=== PATIENT | male | born 1980 | race Two or more races ===

== ENCOUNTER 2022-02-13 14:50 | Observation (INO) | payer OTHER, SELFPAY ==
[2022-02-13] VITALS (7 sets, daily range): BP systolic 100–138; BP diastolic 53–90; PULSE 74–89; RESP 16–24; TEMP 36.6–36.8; O2SAT 95–100; BMI 67.0
--- NOTE | ~2022-02-13 | CT_ITS ---
EXAMINATION: CT ANGIOGRAM OF THE CHEST WITH AND WITHOUT CONTRAST (CT PULMONARY ANGIOGRAM FOR PE) CLINICAL INFORMATION: Reason for Exam syncopte, hypotension COMPARISON: None TECHNIQUE: Prior to contrast administration, noncontrast localization images were obtained. Subsequently, multidetector volumetric imaging was performed from the thoracic inlet to below the diaphragms following the administration of 65 mL Omnipaque 350 intravenous contrast. No contrast reaction reported Sagittal, coronal, and MIP oblique sagittal reformatted images were obtained on the CT workstation, uploaded to PACS, and reviewed. This CT examination was performed using dose optimization techniques as appropriate, variously including the following: *Automated exposure control *Adjustment of mA and/or kV according to patient size (this includes techniques or standardized protocols for targeted exams where dose is matched to indication/reason for exam; i.e. extremities or head) *Use of iterative reconstruction technique Total exam dose-length product 515 mGy-cm FINDINGS: QUALITY OF STUDY/CONTRAST BOLUS: Satisfactory. PULMONARY ARTERIES: No central or segmental pulmonary emboli. THORACIC AORTA: No aneurysm or dissection. LUNG: No focal consolidation, nodules or masses. PLEURA: No pleural effusion or pneumothorax. MEDIASTINUM: Normal heart size. No pericardial effusion. No hilar or mediastinal lymphadenopathy. No evidence of septal bowing or right heart strain. CHEST WALL/AXILLA: No axillary or internal mammary lymphadenopathy. OSSEOUS STRUCTURES: No acute or suspicious osseous abnormality. UPPER ABDOMEN: Unremarkable. No reflux of contrast into the hepatic veins to suggest elevated right heart pressures. CT/CT angio chest PE protocol IMPRESSION: Unremarkable exam. No pulmonary embolism. VTE: negative
--- NOTE | ~2022-02-13 | CT_ITS ---
EXAMINATION: CT HEAD WITHOUT CONTRAST CLINICAL INFORMATION: Lethargy, syncope. COMPARISON: None TECHNIQUE: Contiguous axial imaging was performed from the skull base to vertex without intravenous administration of contrast. Coronal and sagittal reformatted images were obtained. This CT examination was performed using dose optimization techniques as appropriate, variously including the following: *Automated exposure control *Adjustment of mA and/or kV according to patient size (this includes techniques or standardized protocols for targeted exams where dose is matched to indication/reason for exam; i.e. extremities or head) *Use of iterative reconstruction technique DLP: 886.06 mGy-cm FINDINGS: The cortical sulci are normal. The lateral ventricles are symmetric, but dilated. Callosal angle of the lateral as greater than 60 degrees. ventricles The third and fourth ventricles are in their normal midline position. The basilar and prepontine cisterns are unremarkable. There is no acute intra or extracerebral abnormality. There is no mass effect or midline shift. Sections through the bony calvarium are unremarkable. The paranasal sinuses are clear. The bony orbits and orbital contents are unremarkable. CT/CT head/brain wo IV con IMPRESSION: 1. No acute intracranial pathology. 2. Dilatation of the lateral ventricles is out of proportion to the degree of cortical atrophy. This is nonspecific, but can be seen with normal pressure hydrocephalus. Correlate clinically.
--- NOTE | ~2022-02-13 | CT_ITS ---
EXAMINATION: CT CERVICAL SPINE WITHOUT CONTRAST CLINICAL INFORMATION: Syncope. Lethargy. COMPARISON: None TECHNIQUE: Axial images through the cervical spine without contrast. Sagittal and coronal reconstructions on the technologist workstation were performed. This CT examination was performed using dose optimization techniques as appropriate, variously including the following: *Automated exposure control *Adjustment of mA and/or kV according to patient size (this includes techniques or standardized protocols for targeted exams where dose is matched to indication/reason for exam; i.e. extremities or head) *Use of iterative reconstruction technique DLP: 797 mGy-cm FINDINGS: Bone alignment is normal. No fracture or dislocation is seen. Disc spaces are normal. Prevertebral soft tissues are normal. There are well corticated soft tissue ossifications or calcifications in the tissues posterior to the C4 and C5 spinous processes likely related to old trauma. Visualized lung apices are clear. CT/CT cervical spine wo IV con IMPRESSION: No acute fracture or dislocation. Fleischner guidelines were followed.
--- NOTE | 2022-02-13 15:16 | ECG_ITS ---
Test Reason : chest pain Blood Pressure : / mmHG Vent. Rate : 080 BPM Atrial Rate : 080 BPM P-R Int : 180 ms QRS Dur : 086 ms QT Int : 356 ms P-R-T Axes : 025 040 021 degrees QTc Int : 410 ms Normal sinus rhythm Normal ECG No previous ECGs available Referred By: Eva Shields Electronically Signed By:GARY CRUZ
--- NOTE | 2022-02-13 15:30 | ED_ITS ---
HPI - Syncope General Chief Complaint: Nausea/Vomiting/Diarrhea Stated Complaint: ?syncope-VSS w/ language barrier Time Seen by Provider: 02/13/22 15:15 Source: patient and family Mode of arrival: EMS Limitations: language barrier (Hungarian-speaking medical aides teacher utilized) History of Present Illness HPI narrative: Patient presents emergency department via EMS. When patient asked why he is here he states he was driving to [place] in that last thing he remembers. He is lethargic at the time of exam, but answering questions appropriately Per patient significant other it seems they arrived in the parking lot patient reported feeling ?not well? he opened the door vomited a large amount, attempted to get out of the car but subsequently fell to the ground. Significant other states that she tried to prevent him from striking his head but it is uncertain whether he did. He was not responsive to her at this time, his eyes were open but he was not verbal. He was assisted back into the car and EMS was called. Significant other reports no significant past medical history, she does report that he just drove straight from [place] yesterday, taking short breaks along the way to rest. Patient and family deny any past medical history. Denies drug or alcohol usage. Reports feeling well prior to symptom onset suddenly today. Denies any similar history of this occurring in the past Related Data Allergies Allergy/AdvReac Type Severity Reaction Status Date / Time No Known Allergies Allergy Verified 02/13/22 15:16 Review of Systems Review of Systems: Constitutional: No weight loss. No fever. No chills. No weakness. No fatigue. Eye: No swelling. No redness. ENT: No sore throat. No rhinorrhea. No nasal congestion. No sore throat. No difficulty swallowing. Skin: No rash. No itching. Cardiovascular: No chest pain. No chest pressure. No palpitations. No pedal edema. Respiratory: No shortness of breath. No cough. No sputum production. Gastrointestinal: No anorexia. No nausea. No vomiting. No diarrhea. No abdominal pain. No blood in stool. Genitourinary: No burning micturition. No urinary frequency. No incontinence. Neurologic: No headache. No dizziness. Positive syncope. No unilateral weakness. No ataxia. No numbness. No tingling. No change in bowel or bladder control. Musculoskeletal: No muscle pain. No back pain. No joint pain. No stiffness. Hematologic: No bleeding. No bruising. Lymphatics: No enlarged lymph nodes. Psychiatric:No depression. No anxiety. Endocrine: No reports of sweating. No cold or heat intolerance. No polyuria. No polydipsia. Yes all other systems are reviewed and are negative [facility] Past Medical History Attestation statement: The following information was validated with the patient. Source: old records reviewed Social History Social History Alcohol intake: current Alcohol intake frequency: holidays/special occasions only Patient Tobacco Use Status: Never used Tobacco Use of substances other than those prescribed or required for medical reasons: No Advance Directives: No Advance Directives Information Provided: No Physical Exam Vital Signs: Vital Signs: Last Vital Signs Temp 98.0 F 02/13/22 16:30 Pulse 86 02/13/22 16:30 Resp 24 H 02/13/22 16:30 BP 124/64 02/13/22 16:30 Pulse Ox 100 02/13/22 16:30 O2 Del Method 02/13/22 16:30 BMI result Body Mass Index 67.0 Appearance: Drowsy, but responding to questions appropriately?Oriented to person, place and time. Eyes: Pupils equal, round and reactive to light.? EOMI. No nystagmus. ENT: Pharynx normal.?? Neck: Normal inspection.? Neck supple.?? CVS: Heart sounds normal. Normal heart rate and rhythm.? Pulses normal.? Hypotensive. ? Respiratory: No respiratory distress.? Lung sounds clear to auscultation bilaterally?? Abdomen: Soft and non-tender. Normoactive bowel sounds. No pulsatile mass.?? Skin: Skin warm and dry.? Normal skin color.? Extremities: No lower extremity edema.? No calf ttp? Neuro: Moves all extremities spontaneously. Sensation intact bilaterally. CN II- XII intact. No focal neuro deficits. Course Course Course Narrative: Patient is a 41-year-old male with no significant past medical history who presents to emergency department today for evaluation after a syncopal episode of sudden onset with vomiting. Patient initially responsive answering questions but does appear lethargic. Hypotensive with equal blood pressures in bilateral upper extremities. Patient transition to CT scan for a stat head CT, no obvious intracranial hemorrhage, therefore obtained CT angio of the chest for pulmonary embolism. Will obtain CBC to evaluate for leukocytosis/ anemia, CMP to evaluate for abnormal electrolytes /abnormal renal function/ abnormal hepatic/biliary function, EKG and troponin to evaluate for ischemia/ACS. Patient to receive 1L NS IV fluids, Aspirin 324mg PO. Reevaluation(s) Reevaluation #1: 1515 Initial EKG with upsloping noted in V2 and V3, with no reciprocal changes, T-wave inversions in III. Troponin <3.5. Obtained repeat EKG 1543, without acute changes. Dr. Connelly performed bedside cardiac ultrasound, sent EKG images and history to Cardiology, Dr. Mora, for evaluation with no reports of concerning findings based on EKGs at this time. Obtaining delta troponin, dystonic blood pressure improving to 100. Continues to be awake and responsive. Time: 16:35 Reevaluation #2: CT angio of the chest is unremarkable for pulmonary embolism. CT of the cervical spine with no acute fracture subluxation. CT of the head with no evidence of intracranial hemorrhage, there is however dilation of the lateral v entricles, which may be consistent with normal pressure hydrocephalus. Patient denies any headache, vision changes, dizziness, lightheadedness. Contacted Neurology for consultation, not consistent with subarachnoid hemorrhage, less likely to be consistent with seizure given no history, and the presentation, no suggested neurologic intervention at this time, however recommended outpatient neurology follow-up for further evaluation of head CT findings. Time: 17:28 Reevaluation #3: Patient updated on all findings. Repeat troponin is unremarkable. Spoke with hospitalist Dr. Mejia, accepts patient for admission to medicine service. Patient agreeable with plan of care. Advised that he will require outpatient follow-up with Neurology regarding head CT findings. Time: 17:56 MDM - Syncope Medical Records Attestation: I reviewed the patient's medical records. Lab Data Attestation: I reviewed the patient's lab results. Result diagrams: 02/13/22 15:31 02/13/22 15:31 Labs: Lab Results 02/13/22 02/13/22 02/13/22 Range/Units 15:31 15:31 15:31 WBC 6.4 (4.8-10.8) X10*3/uL RBC 4.67 (4.60-5.80) X10*6/uL Hgb 14.3 (14.0-18.0) g/dl Hct 41.5 L (42.0-52.0) % MCV 88.9 (80.0-98.0) fL MCH 30.6 (27.0-33.0) pg MCHC 34.5 (31.0-36.0) g/dl RDW 13.3 (11.0-16.0) % Plt Count 257 (160-400) X10*3/uL MPV 9.8 (9.4-12.4) fL Immature Gran % (Auto) 0.2 (0.0-0.4) % Neut % (Auto) 53.1 (45-73) % Lymph % (Auto) 35.4 (20-40) % [place] % (Auto) 9.1 (2-11) % Eos % (Auto) 1.6 (0-4) % Baso % (Auto) 0.6 (0-2) % Lymph # (Auto) 2.3 (1.2-4.9) X10*3/uL [place] # (Auto) 0.6 (0.1-1.2) X10*3/uL Eos # (Auto) 0.1 (0.0-0.4) X10*3/uL Baso # (Auto) 0.0 (0.0-0.2) X10*3/uL Abs Immat Gran (auto) 0.01 (0.00-0.03) X10*3/uL Absolute Neuts (auto) 3.4 (2.0-8.3) x10*3/uL Absolute Nucleated RBC 0.000 (0.0-0.012) X10*3/uL Nucleated RBC % (auto) 0.0 (0.0-0.2) /100WBC Sodium 139 (135-145) mmol/L Potassium 4.4 (3.3-5.1) mmol/L Chloride 103 (96-108) mmol/L Carbon Dioxide 23 (22-29) mmol/L Anion Gap 17 (12-20) BUN 16 (9-16) mg/dL Creatinine 1.28 (0.5-1.4) mg/dL Estim Creat Clear Calc 128.7 Estimated GFR > 60 Random Glucose 233 H (60-115) mg/dL Calcium 9.2 (8.4-10.2) mg/dL Magnesium 1.8 (1.6-2.6) mg/dL Total Bilirubin 0.4 (0.0-1.0) mg/dL AST 18 (5-37) U/L ALT 40 (0-40) U/L Alkaline Phosphatase 46 (39-117) U/L Troponin I High Sens < 3.5 (<3.5-35.0) ng/L Total Protein 6.9 (6.5-8.0) g/dL Albumin 4.0 (3.5-5.0) g/dL 02/13/22 Range/Units 17:20 WBC (4.8-10.8) X10*3/uL RBC (4.60-5.80) X10*6/uL Hgb (14.0-18.0) g/dl Hct (42.0-52.0) % MCV (80.0-98.0) fL MCH (27.0-33.0) pg MCHC (31.0-36.0) g/dl RDW (11.0-16.0) % Plt Count (160-400) X10*3/uL MPV (9.4-12.4) fL Immature Gran % (Auto) (0.0-0.4) % Neut % (Auto) (45-73) % Lymph % (Auto) (20-40) % [place] % (Auto) (2-11) % Eos % (Auto) (0-4) % Baso % (Auto) (0-2) % Lymph # (Auto) (1.2-4.9) X10*3/uL [place] # (Auto) (0.1-1.2) X10*3/uL Eos # (Auto) (0.0-0.4) X10*3/uL Baso # (Auto) (0.0-0.2) X10*3/uL Abs Immat Gran (auto) (0.00-0.03) X10*3/uL Absolute Neuts (auto) (2.0-8.3) x10*3/uL Absolute Nucleated RBC (0.0-0.012) X10*3/uL Nucleated RBC % (auto) (0.0-0.2) /100WBC Sodium (135-145) mmol/L Potassium (3.3-5.1) mmol/L Chloride (96-108) mmol/L Carbon Dioxide (22-29) mmol/L Anion Gap (12-20) BUN (9-16) mg/dL Creatinine (0.5-1.4) mg/dL Estim Creat Clear Calc Estimated GFR Random Glucose (60-115) mg/dL Calcium (8.4-10.2) mg/dL Magnesium (1.6-2.6) mg/dL Total Bilirubin (0.0-1.0) mg/dL AST (5-37) U/L ALT (0-40) U/L Alkaline Phosphatase (39-117) U/L Troponin I High Sens < 3.5 (<3.5-35.0) ng/L Total Protein (6.5-8.0) g/dL Albumin (3.5-5.0) g/dL Imaging Data CT scan - head: Radiologist's impression: CT/CT head/brain wo IV con IMPRESSION: ? 1. No acute intracranial pathology. 2. Dilatation of the lateral ventricles is out of proportion to the degree of cortical atrophy. This is nonspecific, but can be seen with normal pressure hydrocephalus. Correlate clinically. CT/CT cervical spine wo IV con IMPRESSION: No acute fracture or dislocation.? CT scan - chest: Radiologist's impression: CT/CT angio chest PE protocol IMPRESSION: Unremarkable exam. No pulmonary embolism. ? VTE: negative Critical Care Time Critical Care Time Critical Care Time: Yes Total Critical Care Time: 40 Attestation: I personally attest to this critical care time spent taking care of the patient exclusive of all other billable procedures was approximately 40 minutes including initial evaluation of patient, ordering tests, x-ray interpretation, EKG interpretation, medical consultation, documentation, re-evaluation. Discharge Plan Discharge Clinical Impression: Syncope, Abnormal CT of the head Patient Disposition: Admitted As Inpatient
[2022-02-13] MEDS: 0.9 % Sodium Chloride 1,000 ML 999 ML IV (15:32)
[2022-02-13 15:37] LABS: MANUAL DIFF FLAG NO
[2022-02-13 15:38] LABS: Basophils Percent Auto 0.6 % (0-2); Eosinophils Absolute Auto 0.1 X10*3/uL (0.0-0.4); Eosinophils Percent Auto 1.6 % (0-4); Hematocrit 41.5 % (42.0-52.0); Hemoglobin 14.3 g/dl (14.0-18.0); Imm Gran Abs Auto 0.01 X10*3/uL (0.00-0.03); Imm Gran Pct Auto 0.2 % (0.0-0.4); Lymphocytes Absolute Auto 2.3 X10*3/uL (1.2-4.9); Lymphocytes Percent Auto 35.4 % (20-40); Mean Corpuscular HGB Conc 34.5 g/dl (31.0-36.0); Mean Corpuscular Hemoglobin 30.6 pg (27.0-33.0); Mean Corpuscular Volume 88.9 fL (80.0-98.0); Mean Platelet Volume 9.8 fL (9.4-12.4); Monocytes Absolute Auto 0.6 X10*3/uL (0.1-1.2); Monocytes Percent Auto 9.1 % (2-11); Neutrophils Absolute Auto 3.4 x10*3/uL (2.0-8.3); Neutrophils Percent Auto 53.1 % (45-73); Platelet Count 257 X10*3/uL (160-400); Red Blood Count 4.67 X10*6/uL (4.60-5.80); Red Cell Distribution Width 13.3 % (11.0-16.0); White Blood Count 6.4 X10*3/uL (4.8-10.8)
[2022-02-13] MEDS: iohexoL 350 MG/ML 100 ML INFUS..BTL IV (15:56)
[2022-02-13 16:05] LABS: Alanine Aminotransferase 40 U/L (0-40); Alkaline Phosphatase 46 U/L (39-117); Anion Gap 17 (12-20); Aspartate Amino Transferase 18 U/L (5-37); Bilirubin Total 0.4 mg/dL (0.0-1.0); Blood Urea Nitrogen 16 mg/dL (9-16); Calcium 9.2 mg/dL (8.4-10.2); Carbon Dioxide 23 mmol/L (22-29); Chloride 103 mmol/L (96-108); Creatinine Clr Calc Pharmacy 128.7; Estimated Glomerular Filt Rate > 60; Glucose Random 233 mg/dL (60-115); Magnesium 1.8 mg/dL (1.6-2.6); Potassium 4.4 mmol/L (3.3-5.1); Sodium 139 mmol/L (135-145); Total Protein 6.9 g/dL (6.5-8.0)
[2022-02-13 16:12] LABS: Troponin-I High Sensitivity < 3.5 ng/L (<3.5-35.0)
--- NOTE | 2022-02-13 16:29 | ECG_ITS ---
Test Reason : stroke Blood Pressure : / mmHG Vent. Rate : 071 BPM Atrial Rate : 071 BPM P-R Int : 186 ms QRS Dur : 104 ms QT Int : 356 ms P-R-T Axes : 058 062 -40 degrees QTc Int : 386 ms Normal sinus rhythm ST & T wave abnormality, consider lateral ischemia Abnormal ECG When compared with ECG of 13-FEB-2022 15:43, T wave inversion now evident in Anterolateral leads QT has shortened Referred By: Eva Shields Electronically Signed By:GARY CRUZ
[2022-02-13 17:47] LABS: Troponin-I High Sensitivity < 3.5 ng/L (<3.5-35.0)
[2022-02-13] MEDS: Aspirin 81 MG TAB.CHEW 324 MG PO (18:11)
[2022-02-13 18:34] LABS: COVID-19 Test Negative (Negative); IDNOW Serial# 16C4AD1C
--- NOTE | 2022-02-13 19:17 | PM.IMHP ---
History of Present Illness Date of Service: 02/13/22 Chief Complaint: Syncope 41-year-old male with no significant past medical history presented to the hospital today with a chief complaint of fall/syncope. Patient reported that he was at the shopping, felt unwell, had an episode of vomiting followed by he fainted and fell onto the ground. Denies any neck pain back pain hip pain. Denies any chest pain or palpitations. Mentioned that he just drove from [place]. Denies any fever chills cough or sputum production. Mentioned that he has been trying to keep up with the fluids and diet. Denies any numbness tingling or focal weakness. Review of all other systems is negative except mentioned above ER course: Per ER team patient at the scene noted to have systolic blood pressure in 70s. Given IV fluids improved blood pressure to 124/64. EKG was nonischemic. Troponins were negative. CT head showed no acute intracranial process but noted to have bilateral lateral ventricle-discussed with Dr. Cortes from Neurology, recommended no further neurological intervention, outpatient neurology follow-up. Admitted to the hospital for further management PMFSH Pertinent family history: Reviewed Social History Alcohol intake: current Alcohol intake frequency: holidays/special occasions only Patient Tobacco Use Status: Never used Tobacco Use of substances other than those prescribed or required for medical reasons: No Advance Directives: No Advance Directives Information Provided: No Meds Allergies Allergy/AdvReac Type Severity Reaction Status Date / Time No Known Allergies Allergy Verified 02/13/22 15:16 Active Medications: Current Medications Acetaminophen (Acetaminophen 325 Mg Tablet) 650 mg PO Q6H PRN PRN Reason: Pain, Mild (Pain Scale 1-3) Heparin Sodium (Porcine) (Heparin Sodium,Porcine 5,000 Unit/Ml Vial) 5,000 unit SUBCUT Q8H [place] Sodium Chloride (Ns) 1,000 mls @ 100 mls/hr IVCONT .Q10H [place] Melatonin (Melatonin 3 Mg Tablet) 6 mg PO BEDTIME PRN PRN Reason: Insomnia Senna (Sennosides 8.6 Mg Tablet) 17.2 mg PO BEDTIME PRN PRN Reason: Constipation Sodium Chloride (0.9 % Sodium Chloride Flush 3 Ml Syringe) 3 ml IVFLUSH QSHIFT [place]ODIA Physical Exam Vital Signs and Narrative: Vital Signs: Last Vital Signs Temp 98.0 F 02/13/22 16:30 Pulse 86 02/13/22 16:30 Resp 24 H 02/13/22 16:30 BP 124/64 02/13/22 16:30 Pulse Ox 100 02/13/22 16:30 O2 Del Method 02/13/22 16:30 BMI result Body Mass Index 67.0 Gen: Appears be in no acute distress HEENT: NCAT, Moist mucosa. Pulmonary: Vesicular breath sounds, fair air entry CVS: Normal S1-S2 Abdomen: BS+, Soft, Nontender Extremities: Warm well perfused Neuro: Alert and awake. Grossly nonfocal Results Labs CBC and Chem 7: 02/13/22 15:31 02/13/22 15:31 Labs: Laboratory Results - last 24 hr 02/13/22 02/13/22 02/13/22 15:31 15:31 18:14 MCV 88.9 MCH 30.6 MCHC 34.5 RDW 13.3 Plt Count 257 MPV 9.8 Immature Gran % (Auto) 0.2 Neut % (Auto) 53.1 Lymph % (Auto) 35.4 [place] % (Auto) 9.1 Eos % (Auto) 1.6 Baso % (Auto) 0.6 Lymph # (Auto) 2.3 [place] # (Auto) 0.6 Eos # (Auto) 0.1 Baso # (Auto) 0.0 Abs Immat Gran (auto) 0.01 Absolute Neuts (auto) 3.4 Absolute Nucleated RBC 0.000 Nucleated RBC % (auto) 0.0 Anion Gap 17 Estim Creat Clear Calc 128.7 Estimated GFR > 60 Random Glucose 233 H Calcium 9.2 Magnesium 1.8 Total Bilirubin 0.4 AST 18 ALT 40 Alkaline Phosphatase 46 Total Protein 6.9 Albumin 4.0 COVID-19 ([facility]) Negative COVID-19 Clin Com See Note Imaging Radiologist's Impressions: Impressions Cervical Spine CT 02/13/22 16:11 IMPRESSION: No acute fracture or dislocation. Fleischner guidelines were followed. Head CT 02/13/22 16:11 IMPRESSION: 1. No acute intracranial pathology. 2. Dilatation of the lateral ventricles is out of proportion to the degree of cortical atrophy. This is nonspecific, but can be seen with normal pressure hydrocephalus. Correlate clinically. Chest CTA 02/13/22 16:13 IMPRESSION: Unremarkable exam. No pulmonary embolism. VTE: negative Assessment and Plan (1) Syncope: Status: Acute Plan 41-year-old male with no significant past medical history presented to the hospital with a chief complaint of vomiting/syncope/fall. Syncope: Likely in setting of volume depletion. Patient was initially hypertensive. Blood pressure improved on IV fluids. Currently 124/64. EKG nonischemic/no evidence of bradycardia blocks. Telemetry Troponins x2 negative CT angio chest showed no evidence of pulmonary embolism Echocardiogram CT head showed-dilated ventricles; neurology Dr. Cortes recommended no further neurological intervention, outpatient follow-up Cardiology consult Orthostatic vitals Continue maintenance IV fluids DVT prophylaxis: Subcu heparin Code status: Full code Quality Stroke Does the patient have a stroke diagnosis?: No VTE Prior VTE?: No VTE Risk Level:: Medical - moderate - high VTE Device Contraindication: Treatment Not Indicated VTE Drug Contraindication: N/A - Med Ordered
[2022-02-13] MEDS: 0.9 % Sodium Chloride Flush 3 ML SYRINGE IVFLUSH (20:55)
[2022-02-13] MEDS: 0.9 % Sodium Chloride 1,000 ML 100 ML IVCONT (20:56)
[2022-02-14] VITALS: BP 106/64; PULSE 75; RESP 18; TEMP 37; O2SAT 94
[2022-02-14 04:00] VITALS: BP 125/79; PULSE 79; RESP 16; TEMP 36.7; O2SAT 96
[2022-02-14 05:59] LABS: Amphetamine Screen Urine Not Detected (Not Detect); Barbiturates, Urine Not Detected (Not Detect); Benzodiazepines Screen Urine Not Detected (Not Detect); Cannabinoid Screen Urine POSITIVE (Not Detect); Cocaine Screen Urine Not Detected (Not Detect); Fentanyl, urine Not Detected (Not Detect); Opiate Screen Urine Not Detected (Not Detect); Phencyclidine Screen Urine Not Detected (Not Detect)
[2022-02-14] MEDS: 0.9 % Sodium Chloride 1,000 ML 100 ML IVCONT (06:35)
[2022-02-14 06:47] LABS: MANUAL DIFF FLAG NO
[2022-02-14 07:02] LABS: Basophils Percent Auto 0.6 % (0-2); Eosinophils Absolute Auto 0.1 X10*3/uL (0.0-0.4); Eosinophils Percent Auto 1.4 % (0-4); Hematocrit 41.2 % (42.0-52.0); Hemoglobin 13.8 g/dl (14.0-18.0); Imm Gran Abs Auto 0.01 X10*3/uL (0.00-0.03); Imm Gran Pct Auto 0.2 % (0.0-0.4); Lymphocytes Absolute Auto 2.2 X10*3/uL (1.2-4.9); Lymphocytes Percent Auto 35.4 % (20-40); Mean Corpuscular HGB Conc 33.5 g/dl (31.0-36.0); Mean Corpuscular Hemoglobin 30.4 pg (27.0-33.0); Mean Corpuscular Volume 90.7 fL (80.0-98.0); Monocytes Absolute Auto 0.6 X10*3/uL (0.1-1.2); Monocytes Percent Auto 9.2 % (2-11); Neutrophils Absolute Auto 3.3 x10*3/uL (2.0-8.3); Neutrophils Percent Auto 53.2 % (45-73); Platelet Count 228 X10*3/uL (160-400); Red Blood Count 4.54 X10*6/uL (4.60-5.80); Red Cell Distribution Width 13.7 % (11.0-16.0); White Blood Count 6.2 X10*3/uL (4.8-10.8)
[2022-02-14 07:44] LABS: Anion Gap 15 (12-20); Blood Urea Nitrogen 12 mg/dL (9-16); Carbon Dioxide 24 mmol/L (22-29); Chloride 107 mmol/L (96-108); Creatinine Clr Calc Pharmacy 169.8; Estimated Glomerular Filt Rate > 60; Glucose Random 193 mg/dL (60-115); Potassium 4.5 mmol/L (3.3-5.1); Sodium 141 mmol/L (135-145)
[2022-02-14 07:53] LABS: Calcium 8.7 mg/dL (8.4-10.2)
[2022-02-14 08:00] VITALS: BP 137/74; PULSE 70; RESP 20; TEMP 36.4; O2SAT 97
--- NOTE | 2022-02-14 08:52 | PHA.MEDREC ---
Pharmacy Consult ? Medication Reconciliation Pharmacy has completed the medication reconciliation. Patient attests to taking no medications due to not being on insurance. Working to get insurance.
[2022-02-14] MEDS: 0.9 % Sodium Chloride Flush 3 ML SYRINGE IVFLUSH (10:03)
[2022-02-14 10:44] VITALS: BP 141/91; PULSE 76; RESP 16; TEMP 36.4; O2SAT 98
[2022-02-14] MEDS: Heparin Sodium,Porcine 5,000 UNIT/ML VIAL 5000 UNIT SUBCUT (12:27)
--- NOTE | 2022-02-14 12:32 | P.CONCA_ITS ---
History of Present Illness History of Present Illness Date of Service: 02/14/22 Requesting physician: Andrew Beltran Consult reason: other (Syncope) Chief complaint: Syncope Narrative: I was consulted to see Sweetien in cardiology consultation today for syncope. She was obtained with help of apparatus repair mechanic. Patient's was at bedside. Patient works in not current drives from not car and came back driving from not call on Tuesday. His usual state of health. Yesterday went to [id number] with his and was driving that. He then said to his that he was not feeling well. He got the car and said he was weak in his knees, his thought he had low sugar and therefore was given his sugar advised him to sit down but then he started is throwing up and then he passed out. noted him to be extremely pale and diaphoretic. Patient was then brought to the emergency room. Initially was hypotensive. His troponins are negative EKG did not show any significant ischemic changes. He was given rapid fluid infusion and since then his blood pressures improved. Currently feels well. He says similar event happened not can about a year ago. He currently has no other major heart issues. Denies any family history of premature sudden cardiac that. He said he is prediabetic. Has not had any hypertension. He said he drinks a lot of fluid. No recent illnesses or viral syndrome or nausea vomiting diarrhea or bleeding issues. Review of Systems Constitutional: Constitutional: Reports no additional constitutional complain ts Eyes: Eyes: Reports no additional eye complaints Cardiovascular: Cardiovascular: Denies chest pain, Denies rapid heart rate, Denies leg edema, Reports Loss of Consciousness, Denies palpitations and Denies dyspnea on exertion Respiratory: Respiratory: Reports no additional respiratory complaints and Denies dyspnea on exertion Gastrointestinal: Gastrointestinal: Reports vomiting Musculoskeletal: Musculoskeletal: Reports no additional musculoskeletal complaints Integumentary/Breasts: Skin/Breast: Reports system reviewed and no additional complaints, except as docu Neurologic: Reports system reviewed and no additional complaints, except as documented Psychiatric: Psychiatric: Reports no additional psychiatric complaints Endocrine: Endocrine: Denies palpitations [facility] Social History Social History Household Members: Spouse Housing: Apartment Do you presently have visiting nurse or other home services: No Alcohol intake: current Alcohol intake frequency: holidays/special occasions only Patient Tobacco Use Status: Never used Tobacco Use of substances other than those prescribed or required for medical reasons: No Currently Displaying Signs/Symptoms of Drug Intoxication Withdrawal: No Have you been hit, kicked, punched, or otherwise hurt by someone within the past year? If so, by whom?: No Do you feel safe in your current relationship?: Yes Is there a partner from a previous relationship who is making you feel unsafe now?: No Are you made to feel afraid or neglected: No Advance Directives: No Advance Directives Information Provided: No Do you have thoughts of harming others: None Do you have a plan to hurt others: No Plan Recently lost weight without trying: No Eating poorly because of decreased appetite: No Nutrition Risks: No Nutritional Risk Poor oral hygiene: No Meds Allergies Allergy/AdvReac Type Severity Reaction Status Date / Time No Known Allergies Allergy Verified 02/13/22 15:16 Active Medications: Current Medications Acetaminophen (Acetaminophen 325 Mg Tablet) 650 mg PO Q6H PRN PRN Reason: Pain, Mild (Pain Scale 1-3) Heparin Sodium (Porcine) (Heparin Sodium,Porcine 5,000 Unit/Ml Vial) 5,000 unit SUBCUT Q8H [facility] Last Admin: 02/14/22 12:27 Dose: 5,000 unit Sodium Chloride (Ns) 1,000 mls @ 100 mls/hr IVCONT .Q10H [facility] Last Admin: 02/14/22 06:35 Dose: 100 mls/hr Melatonin (Melatonin 3 Mg Tablet) 6 mg PO BEDTIME PRN PRN Reason: Insomnia Senna (Sennosides 8.6 Mg Tablet) 17.2 mg PO BEDTIME PRN PRN Reason: Constipation Sodium Chloride (0.9 % Sodium Chloride Flush 3 Ml Syringe) 3 ml IVFLUSH QSHIFT [facility] Last Admin: 02/14/22 10:03 Dose: 3 ml Home Medications Medication Instructions Recorded Confirmed Last Taken Type No Known Home Meds 02/14/22 02/14/22 Unknown History Physical Exam Vital Signs: Vital Signs: Last Vital Signs Temp 97.5 F 02/14/22 10:44 Pulse 76 02/14/22 10:44 Resp 16 02/14/22 10:44 BP 141/91 H 02/14/22 10:44 Pulse Ox 98 02/14/22 10:44 O2 Del Method 02/14/22 10:44 BMI result Body Mass Index 67.0 Const: General: cooperative, comfortable, no acute distress, alert and awake Nutritional Appearance: obese Orientation/consciousness: patient oriented x3 Limitations: no limitations HEENT: Head: Yes normocephalic and Yes atraumatic Neck: Neck: Yes trachea midline, Yes supple and Yes no JVD Resp: Effort & Inspection: normal respiratory effort Auscultation: clear to auscultation bilaterally Cardio: Jugular venous distension: no JVD Palpation: normal PMI Rate: regular rate Rhythm: regular rhythm Heart sounds: S1 normal heart sound present, S2 normal heart sound present, no click, no gallops and no murmurs GI: Auscultation: normal bowel sounds Skin: General skin exam: no rashes or lesions noted Neuro: General: patient oriented x3 and no focal motor deficits Extrem: General: Yes no clubbing, cyanosis or edema Objective Labs and Meds Result diagrams: 02/14/22 06:39 02/14/22 06:39 Lab results: Laboratory Results - last 24 hr 02/13/22 02/13/22 02/13/22 15:31 15:31 15:31 WBC 6.4 RBC 4.67 Hgb 14.3 Hct 41.5 L MCV 88.9 MCH 30.6 MCHC 34.5 RDW 13.3 Plt Count 257 MPV 9.8 Immature Gran % (Auto) 0.2 Neut % (Auto) 53.1 Lymph % (Auto) 35.4 [place] % (Auto) 9.1 Eos % (Auto) 1.6 Baso % (Auto) 0.6 Lymph # (Auto) 2.3 [place] # (Auto) 0.6 Eos # (Auto) 0.1 Baso # (Auto) 0.0 Abs Immat Gran (auto) 0.01 Absolute Neuts (auto) 3.4 Absolute Nucleated RBC 0.000 Nucleated RBC % (auto) 0.0 Sodium 139 Potassium 4.4 Chloride 103 Carbon Dioxide 23 Anion Gap 17 BUN 16 Creatinine 1.28 Estim Creat Clear Calc 128.7 Estimated GFR > 60 Random Glucose 233 H Calcium 9.2 Magnesium 1.8 Total Bilirubin 0.4 AST 18 ALT 40 Alkaline Phosphatase 46 Troponin I High Sens < 3.5 Total Protein 6.9 Albumin 4.0 Urine Opiates Screen Urine Fentanyl Screen Ur Barbiturates Screen Ur Phencyclidine Scrn Ur Amphetamines Screen U Benzodiazepines Scrn Urine Cocaine Screen U Marijuana (THC) Screen COVID-19 ([facility]) COVID-19 Clin Com 02/13/22 02/13/22 02/14/22 17:20 18:14 05:35 WBC RBC Hgb Hct MCV MCH MCHC RDW Plt Count MPV Immature Gran % (Auto) Neut % (Auto) Lymph % (Auto) [place] % (Auto) Eos % (Auto) Baso % (Auto) Lymph # (Auto) [place] # (Auto) Eos # (Auto) Baso # (Auto) Abs Immat Gran (auto) Absolute Neuts (auto) Absolute Nucleated RBC Nucleated RBC % (auto) Sodium Potassium Chloride Carbon Dioxide Anion Gap BUN Creatinine Estim Creat Clear Calc Estimated GFR Random Glucose Calcium Magnesium Total Bilirubin AST ALT Alkaline Phosphatase Troponin I High Sens < 3.5 Total Protein Albumin Urine Opiates Screen Not Detected Urine Fentanyl Screen Not Detected Ur Barbiturates Screen Not Detected Ur Phencyclidine Scrn Not Detected Ur Amphetamines Screen Not Detected U Benzodiazepines Scrn Not Detected Urine Cocaine Screen Not Detected U Marijuana (THC) Screen POSITIVE H COVID-19 ([facility]) Negative COVID-19 Clin Com See Note 02/14/22 02/14/22 06:39 06:39 WBC 6.2 RBC 4.54 L Hgb 13.8 L Hct 41.2 L MCV 90.7 MCH 30.4 MCHC 33.5 RDW 13.7 Plt Count 228 MPV 10.0 Immature Gran % (Auto) 0.2 Neut % (Auto) 53.2 Lymph % (Auto) 35.4 [place] % (Auto) 9.2 Eos % (Auto) 1.4 Baso % (Auto) 0.6 Lymph # (Auto) 2.2 [place] # (Auto) 0.6 Eos # (Auto) 0.1 Baso # (Auto) 0.0 Abs Immat Gran (auto) 0.01 Absolute Neuts (auto) 3.3 Absolute Nucleated RBC 0.000 Nucleated RBC % (auto) 0.0 Sodium 141 Potassium 4.5 Chloride 107 Carbon Dioxide 24 Anion Gap 15 BUN 12 Creatinine 0.97 Estim Creat Clear Calc 169.8 Estimated GFR > 60 Random Glucose 193 H Calcium 8.7 Magnesium Total Bilirubin AST ALT Alkaline Phosphatase Troponin I High Sens Total Protein Albumin Urine Opiates Screen Urine Fentanyl Screen Ur Barbiturates Screen Ur Phencyclidine Scrn Ur Amphetamines Screen U Benzodiazepines Scrn Urine Cocaine Screen U Marijuana (THC) Screen COVID-19 ([facility]) COVID-19 Clin Com Imaging Radiologist's impression: Impressions Cervical Spine CT 02/13/22 16:11 IMPRESSION: No acute fracture or dislocation. Fleischner guidelines were followed. Head CT 02/13/22 16:11 IMPRESSION: 1. No acute intracranial pathology. 2. Dilatation of the lateral ventricles is out of proportion to the degree of cortical atrophy. This is nonspecific, but can be seen with normal pressure hydrocephalus. Correlate clinically. Chest CTA 02/13/22 16:13 IMPRESSION: Unremarkable exam. No pulmonary embolism. VTE: negative Assessment and Plan (1) Syncope: Status: Acute Patient's syncopal episode appears to be either orthostatic or vasovagal in nature. Is unusual as he drinks a lot of fluid. No recent illnesses to precipitated. No evidence of acute coronary syndrome. No significant arrhythmias noted. At this point time I think from cardiac perspective patient can be discharged home however he is awaiting neurology consult. Will require outpatient workup including Holter, echocardiogram and head-up tilt-table test. Will schedule for the same. Mechanism of vasovagal syncope was discussed with him in details. Advised to continue maintain adequate hydration and also increased salt intake. Advised to monitor blood pressure at home and maintain a log. Procedures Date of Service Date of Service: 02/14/22
--- NOTE | 2022-02-14 14:48 | MHC.CM.PN ---
with interpertator met with pt who lives is independent cm intervention not indicated ,pt covid vax x 2 ,has no ins no pcp
--- NOTE | 2022-02-14 15:10 | P.DS_ITS ---
DS: Providers Provider Date of Service: 02/14/22 Date of admission: 02/13/22 19:15 Date of discharge: 02/14/22 Primary care physician: None Physician Consults: 02/13/22 19:17 Consult to Cardiology Routine Consulting Provider: Kiran Mora Reason for consultation: syncope DS: Diagnosis Discharge Diagnosis (1) Syncope: Status: Acute DS: Summary Hospital Course Hospital Course: 41-year-old male with no significant past medical history presented to the hospital today with a chief complaint of fall/syncope.? Patient reported that he was at the shopping, felt unwell, had an episode of vomiting followed by he fainted and fell onto the ground.? Denies any neck pain back pain hip pain.? Denies any chest pain or palpitations.? Mentioned that he just drove from [place].? Denies any fever chills cough or sputum production.? Mentioned that he has been trying to keep up with the fluids and diet.? Denies any numbness tingling or focal weakness.? Review of all other systems is negative except mentioned above ER course: Per ER team patient at the scene noted to have systolic blood pressure in 70s.? Given IV fluids improved blood pressure to 124/64.? EKG was nonischemic.? Troponins were negative.? CT head showed no acute intracranial process but noted to have bilateral lateral ventricle-discussed with Dr. Cortes from Neurology, recommended no further neurological intervention, outpatient neurology follow- up.? Admitted to the hospital for further management. Hospital Course Admitted to telemetry overnight will monitor failed to demonstrate any acute arrhythmias. Seen in consultation by Cardiology who felt this was likely vasovagal /related to volume. Workup will be completed as an outpatient with Cardiology. At this point time patient is medically acceptable for discharge and will follow-up with Cardiology in the office Time Spent with Patient Time attestation: Total time spent providing and/or coordinating discharge services: Discharge coordination time: Greater than 30 minutes Quality: Safe Use of Opioids Does Pt have an Active Cancer Diagnosis on the Problem List?: No Quality: Stroke Does the patient have a stroke diagnosis?: No Physical Exam Vital Signs: Vital Signs: Last Vital Signs Temp 97.5 F 02/14/22 10:44 Pulse 76 02/14/22 10:44 Resp 16 02/14/22 10:44 BP 141/91 H 02/14/22 10:44 Pulse Ox 98 02/14/22 10:44 O2 Del Method 02/14/22 10:44 BMI result Body Mass Index 67.0 Const: Other: no acute distress Resp: Other: clear to auscultation bilaterally no rales rhonchi or wheezes Cardio: Other: no S4; positive S1-S2; no S3 murmurs rubs or gallops GI: Other: soft nontender nondistended normoactive bowel sounds Neuro: Other: cranial nerves 2-12 grossly intact as tested. Motor is 5 of 5 all extremities. Sensation is intact. Cognition appropriate Extrem: Other: no edema bilaterally DS: Data Data Completed and Pending Labs on day of discharge: Laboratory Results - last 24 hr 02/13/22 02/13/22 02/13/22 15:31 15:31 15:31 WBC 6.4 RBC 4.67 Hgb 14.3 Hct 41.5 L MCV 88.9 MCH 30.6 MCHC 34.5 RDW 13.3 Plt Count 257 MPV 9.8 Immature Gran % (Auto) 0.2 Neut % (Auto) 53.1 Lymph % (Auto) 35.4 [place] % (Auto) 9.1 Eos % (Auto) 1.6 Baso % (Auto) 0.6 Lymph # (Auto) 2.3 [place] # (Auto) 0.6 Eos # (Auto) 0.1 Baso # (Auto) 0.0 Abs Immat Gran (auto) 0.01 Absolute Neuts (auto) 3.4 Absolute Nucleated RBC 0.000 Nucleated RBC % (auto) 0.0 Sodium 139 Potassium 4.4 Chloride 103 Carbon Dioxide 23 Anion Gap 17 BUN 16 Creatinine 1.28 Estim Creat Clear Calc 128.7 Estimated GFR > 60 Random Glucose 233 H Calcium 9.2 Magnesium 1.8 Total Bilirubin 0.4 AST 18 ALT 40 Alkaline Phosphatase 46 Troponin I High Sens < 3.5 Total Protein 6.9 Albumin 4.0 Urine Opiates Screen Urine Fentanyl Screen Ur Barbiturates Screen Ur Phencyclidine Scrn Ur Amphetamines Screen U Benzodiazepines Scrn Urine Cocaine Screen U Marijuana (THC) Screen COVID-19 ([facility]) COVID-19 Clin Com 02/13/22 02/13/22 02/14/22 17:20 18:14 05:35 WBC RBC Hgb Hct MCV MCH MCHC RDW Plt Count MPV Immature Gran % (Auto) Neut % (Auto) Lymph % (Auto) [place] % (Auto) Eos % (Auto) Baso % (Auto) Lymph # (Auto) [place] # (Auto) Eos # (Auto) Baso # (Auto) Abs Immat Gran (auto) Absolute Neuts (auto) Absolute Nucleated RBC Nucleated RBC % (auto) Sodium Potassium Chloride Carbon Dioxide Anion Gap BUN Creatinine Estim Creat Clear Calc Estimated GFR Random Glucose Calcium Magnesium Total Bilirubin AST ALT Alkaline Phosphatase Troponin I High Sens < 3.5 Total Protein Albumin Urine Opiates Screen Not Detected Urine Fentanyl Screen Not Detected Ur Barbiturates Screen Not Detected Ur Phencyclidine Scrn Not Detected Ur Amphetamines Screen Not Detected U Benzodiazepines Scrn Not Detected Urine Cocaine Screen Not Detected U Marijuana (THC) Screen POSITIVE H COVID-19 ([facility]) Negative COVID-[employer] See Note 02/14/22 02/14/22 06:39 06:39 WBC 6.2 RBC 4.54 L Hgb 13.8 L Hct 41.2 L MCV 90.7 MCH 30.4 MCHC 33.5 RDW 13.7 Plt Count 228 MPV 10.0 Immature Gran % (Auto) 0.2 Neut % (Auto) 53.2 Lymph % (Auto) 35.4 [place] % (Auto) 9.2 Eos % (Auto) 1.4 Baso % (Auto) 0.6 Lymph # (Auto) 2.2 [place] # (Auto) 0.6 Eos # (Auto) 0.1 Baso # (Auto) 0.0 Abs Immat Gran (auto) 0.01 Absolute Neuts (auto) 3.3 Absolute Nucleated RBC 0.000 Nucleated RBC % (auto) 0.0 Sodium 141 Potassium 4.5 Chloride 107 Carbon Dioxide 24 Anion Gap 15 BUN 12 Creatinine 0.97 Estim Creat Clear Calc 169.8 Estimated GFR > 60 Random Glucose 193 H Calcium 8.7 Magnesium Total Bilirubin AST ALT Alkaline Phosphatase Troponin I High Sens Total Protein Albumin Urine Opiates Screen Urine Fentanyl Screen Ur Barbiturates Screen Ur Phencyclidine Scrn Ur Amphetamines Screen U Benzodiazepines Scrn Urine Cocaine Screen U Marijuana (THC) Screen COVID-19 ([facility]) COVID-19 [place] Com Discharge Plan Discharge Patient Disposition: Home, Self-Care Discharge Diagnosis: Syncope Referrals: Physician,None [Primary Care Provider] - 1 Week Discharge Medications: No Action No Known Home Meds Discharge Orders: Discharge Order (Routine); Ordered 02/14/22 Ordered By: Andrew Beltran Diet: Advance to usual diet Activity on Discharge: As tolerated Stand Alone Forms: Patient Portal Discharge page Care Plan Goals: increase her salt intake combined with water Health Concerns: you need to find PCP Plan of Treatment: Dr. Mora's office will call you for follow-up appointment Assessment: see discharge summary
[2022-02-14 15:15] VITALS: BP 101/55; PULSE 80; RESP 18; TEMP 36.5; O2SAT 98
--- NOTE | 2022-02-14 15:51 | MHC.CM.PN ---
pt dcd today no skilled services ordered by
== END 2022-02-14 15:54 | disposition home or self-care (01) ==
LOC: HO.ED 17:57 → HO.EDOVER 19:19 → HO.IMC 19:27
PROVIDERS: Nurse Practitioner Family; Admitting Provider Hospitalist; Emergency Provider Emergency Medicine; Visit Provider Hospitalist
DX: R55 Syncope and collapse (principal); I95.9 Hypotension, unspecified; M54.2 Cervicalgia; R53.83 Other fatigue; Z20.822 Contact with and (suspected) exposure to COVID-19; Z79.899 Other long term (current) drug therapy
CPT/HCPCS: 36415; 70450; 71275; 72125; 80048; 80053; 80307; 83735; 84484; 85025; 87635; 93005; 96365; 99219; 99285; Q9967

== ENCOUNTER 2022-10-11 07:54 | Outpatient (REF) | payer OTHER, SELFPAY ==
[2022-10-11 08:08] LABS: MANUAL DIFF FLAG NO
[2022-10-11 08:42] LABS: Basophils Percent Auto 0.6 % (0-2); Eosinophils Absolute Auto 0.1 X10*3/uL (0.0-0.4); Hematocrit 46.8 % (42.0-52.0); Hemoglobin 16.1 g/dl (14.0-18.0); Imm Gran Abs Auto 0.01 X10*3/uL (0.00-0.03); Imm Gran Pct Auto 0.1 % (0.0-0.4); Lymphocytes Percent Auto 43.3 % (20-40); Mean Corpuscular HGB Conc 34.4 g/dl (31.0-36.0); Mean Corpuscular Hemoglobin 30.8 pg (27.0-33.0); Mean Corpuscular Volume 89.5 fL (80.0-98.0); Mean Platelet Volume 10.2 fL (9.4-12.4); Monocytes Absolute Auto 0.6 X10*3/uL (0.1-1.2); Monocytes Percent Auto 9.4 % (2-11); Neutrophils Percent Auto 44.6 % (45-73); Platelet Count 254 X10*3/uL (160-400); Red Blood Count 5.23 X10*6/uL (4.60-5.80); Red Cell Distribution Width 12.9 % (11.0-16.0); White Blood Count 6.8 X10*3/uL (4.8-10.8)
[2022-10-11 08:54] LABS: Estimated Average Glucose 252 mg/dL; Hemoglobin A1c % 10.4 %
[2022-10-11 10:08] LABS: Alanine Aminotransferase 32 U/L (0-40); Albumin Level 4.4 g/dL (3.5-5.0); Alkaline Phosphatase 56 U/L (39-117); Anion Gap 16 (12-20); Aspartate Amino Transferase 17 U/L (5-37); Bilirubin Total 0.8 mg/dL (0.0-1.0); Blood Urea Nitrogen 11 mg/dL (9-16); Calcium 10.4 mg/dL (8.4-10.2); Carbon Dioxide 25 mmol/L (22-29); Chloride 102 mmol/L (96-108); Cholesterol 288 mg/dL; Estimated Glomerular Filt Rate > 60; HDL Cholesterol 42 mg/dL; LDL Cholesterol Calculated 210 mg/dl; Potassium 4.5 mmol/L (3.3-5.1); Sodium 138 mmol/L (135-145); Total Protein 7.4 g/dL (6.5-8.0); Triglycerides 181 mg/dL
[2022-10-11 12:04] LABS: Glucose Random 203 mg/dL (60-115)
[2022-10-11 12:42] LABS: TSH reflex Free T4 4.21 uIU/mL (0.32-4.0)
== END 2022-10-11 07:55 | disposition home or self-care (01) ==
LOC: HO.LAB 07:54
PROVIDERS: Visit Provider Nurse Practitioner Family
DX: Z13.29 Encounter for screening for other suspected endocrine disorder (principal); Z13.220 Encounter for screening for lipoid disorders; Z13.0 Encounter for screening for diseases of the blood and blood-forming organs and certain disorders involving the immune mechanism; E11.9 Type 2 diabetes mellitus without complications
CPT/HCPCS: 36415; 80053; 80061; 83036; 84439; 84443; 85025

== ENCOUNTER 2022-12-21 10:46 | Outpatient (AMB) | payer OTHER, SELFPAY ==
--- NOTE | 2022-12-21 10:47 | MHC.PC.OV ---
Vital Signs 12/21/22 10:48 Height 5 ft 8 in Weight 245 lb BMI 37.2 BP 148/80 H Blood Pressure Location Lt brachial Position Sitting Pulse 73 Pulse Source Pulse Oximeter Temp Source Skin Pulse Oximetry (%) 99 Oxygen Delivery Method Room Air Intake Visit Reasons: physical exam, DM Intake Note: Patient is here today for a physical. Rv Mechanic Required: Yes Rv Mechanic Language: Boiler Operator Name: Saúl [id number] Information Interpreted: non-clinical & clinical Allergies No Known Allergies Allergy (Verified 12/21/22 11:21) Tobacco use date assessed: 12/21/22 Dental Screening Dental Screen Date: 12/21/22 Did you have a dental visit in the last 12 months?: No Did you have a dental problem in the last 6 months where you did not have access to dental care?: No HPI HPI Comments History of Present Illness Details 42-year-old male past medical history significant for hypercholesteremia, diabetes mellitus, syncope, CT in February showed bilateral lateral ventricle. Patient was referred to Neurology and Cardiology in September however states he was never contacted to set up these appointments. Will follow-up on referrals. Patient denies any chest pain, palpitations, shortness of breath and syncope. Patient requesting to see a tig welder for bilateral toenail fungus for many years, patient has yellow toenails on bilateral feet referral entered to podiatry. Patient reports he never started on previously ordered rosuvastatin for elevated LDL as it was not covered by his insurance will order pravastatin and follow-up on fasting lipid panel in 3 months. Eye exam: Referral entered [facility] Medical History (Updated 12/21/22 @ 11:36 by AMANDA Saldaña) Hypercholesteremia Type 2 diabetes mellitus Surgical History H/O hernia repair Family History Mother Diabetes Father No problems noted. Maternal Aunt Breast cancer Social History Household Members: Spouse Housing: Apartment Do you presently have visiting nurse or other home services: No Alcohol intake: current Alcohol intake frequency: holidays/special occasions only Patient Tobacco Use Status: Never used Tobacco e-Cigarette/Vaping Use: Never Used service: No Current occupational status: employed Current occupational exposures/hazards: No Cognitive needs: No Hearing needs: No Vision needs: No Questionnaire PHQ-9 Over the last 2 weeks, how often have you been bothered by any of the following problems? 1. Little interest or pleasure in doing things: not at all 2. Feeling down, depressed, or hopeless: not at all 3. Trouble falling or staying asleep, or sleeping too much: not at all 4. Feeling tired or having little energy: not at all 5. Poor appetite or overeating: not at all 6. Feeling bad about yourself - or that you are a failure or have let yourself or your family down: not at all 7. Trouble concentrating on things, such as reading the newspaper or watching television: not at all 8. Moving or speaking so slowly that other people could have noticed. Or the opposite - being so fidgety or restless that you have been moving around a lot more than usual: not at all 9. Thoughts that you would be better off or of hurting yourself in some way: not at all Total score: 0 Depression Screening Interpretation: Negative 07532 - PHQ-9 Billing: Yes Source: Developed by Drs. Henry Arias, Barbara Canales, Shekhar Hi and colleagues, with an educational stefanie from [employer]. Thrive Questionnaire Date Thrive assessed: 12/21/22 I am a: Patient What is your living situation today?: I have a steady place to live Within the past 12 months, did the food you bought not last and you didn't have the money to get more?: Never true Within the past 12 months, did you worry whether your food would run out before you got money to buy more?: Never true Currently or been in a relationship where the following occur: no concerns reported AUDIT C Alcohol Use Questionnaire (AUDIT-C) 1. How often do you have a drink containing alcohol?: Never 3. How often do you have six or more drinks on one occasion?: Never Total Score: 0 SHELLIE-7 AMB Questionnaire SHELLIE-7 Date SHELLIE - 7 assessed: 12/21/22 Feeling nervous, anxious, or on edge: 0 = Not at all Not being able to stop or control worryin = Not at all Worrying too much about different things: 0 = Not at all Trouble relaxin = Not at all Being so restless that it is hard to sit still: 0 = Not at all Becoming easily annoyed or irritable: 0 = Not at all Feeling afraid as if something awful might happen: 0 = Not at all Total SHELLIE-7 score (0-4 normal; 5-9 mild; 10-14 moderate; 15-21 severe): 0 Source: Developed by Drs. Henry Arias, Barbara Canales, Shekhar Hi and colleagues, with an educational stefanie from [employer]. SHELLIE-7 Assessment Billing SHELLIE-7 Assessment Tool: SHELLIE-7 Assessment 86521 Review of Systems Const Denies chills, Denies fatigue, Denies fever(s) and Denies poor appetite Eyes Denies no additional complaints ENT Reports Normal hearing present Card Denies chest pain, Denies syncope, Denies rapid heart rate and Denies dyspnea Resp Denies cough and Denies dyspnea GI Denies change in stool character, Denies constipation, Denies diarrhea, Denies nausea and Denies vomiting Denies dysuria, Denies urinary frequency and Denies urinary urgency Neuro Reports Normal hearing present, Denies confusion and Denies syncope Psych Denies confusion Endo Denies fatigue Physical exam (Primary Care) Vital Signs: Last Vital Signs Pulse 73 12/21/22 10:48 BP 148/80 H 12/21/22 10:48 Pulse Ox 99 12/21/22 10:48 Oxygen Delivery Method Room Air 12/21/22 10:48 BMI result Body Mass Index 37.2 Tobacco/Smoking Status: Tobacco use Status Tobacco use date assessed 12/21/22 12/21/22 10:49 Patient Tobacco Use Status Never used Tobacco 12/21/22 10:49 e-Cigarette/Vaping Use Never Used 12/21/22 10:49 PHQ-9: PHQ-9 Score PHQ-9: Total score 0 12/21/22 13:03 Depression Screening Interpretation: Negative Thrive Assessment: Date of Thrive Assessment Date Thrive assessed 12/21/22 12/21/22 10:49 Currently or been in a relationship where the following occur: no concerns reported Const General: No confusion Orientation/consciousness: No confusion HENMT Head: Yes normocephalic and Yes atraumatic Ears: external ears normal and TM's normal bilaterally General nose exam: Normal external nose present and Normal nasal mucous membranes and turbinates present Face and sinus: Yes normal facial exam and Yes sinuses nontender Mouth: moist mucous membranes Throat: Yes tonsils normal Eyes Conjunctivae: conjunctivae normal Sclerae: sclerae normal Pupils: Equal, round and reactive pupils present and Pupils normal by confrontation EOM: EOMs intact bilaterally Direct Ophthalmoscopy: normal light reflex Neck Neck: Yes no lymphadenopathy and Yes supple Thyroid: Thyroid normal Chest Chest palpation & inspection: normal inspection of the chest Resp Effort & Inspection: normal respiratory effort Auscultation: clear to auscultation bilaterally, no crackles, no rhonchi and no wheezes Cardio Rate: regular rate Rhythm: regular rhythm Peripheral pulses: radial pulses present and dorsalis pedis present GI Inspection: Yes normal to inspection Palpation (GI): Soft to palpation, nontender and No hepatosplenomegaly present Auscultation: normoactive bowel sounds Skin General skin exam: no rashes or lesions noted Neuro General: No confusion Cranial nerves: Yes Equal, round and reactive pupils present and Yes Normal hearing present Cognition (Neuro): normal cognition Gait exam (Neuro): Normal gait present Motor exam (neuro): 5/5 motor strength present throughout Deep tendon reflexes (DTR's): Right brachioradialis reflex intensity grade: 2+, Left brachioradialis reflex intensity grade: 2+, Right patellar reflex intensity grade: 2+ and Left patellar reflex intensity grade: 2+ Extrem General: No edema Assessment and Plan Assessment & Plan (1) Onychomycosis: Code(s): B35.1 - Tinea unguium Plan: Referral entered to podiatry. (2) Hypercholesteremia: Code(s): E78.00 - Pure hypercholesterolemia, unspecified Plan: Juancarlos Start patient on pravastatin as rosuvastatin was not covered by his insurance and follow-up fasting lipid panel in 3 months. LDL goal less than 100 (3) Type 2 diabetes mellitus: Code(s): E11.9 - Type 2 diabetes mellitus without complications Plan: Continue on metformin. Last HGB A1C 10.4% in October Patient educated to decrease the amount of carbohydrate intake such as pasta, bread, rice and potatoes are all sugar in addition to the sweet stuff. Remember that fruits are good but they also have sugar.Hemoglobin A1c goal of less than 6.5%. Follow up in 1 month (4) Elevated TSH: Code(s): R79.89 - Other specified abnormal findings of blood chemistry Plan: Repeat TSH ordered. (5) Physical exam, annual: Code(s): Z00.00 - Encounter for general adult medical examination without abnormal findings Plan Follow up in 1 month for DM and 1 year for physical exam Orders: Orders Comprehensive [place]. Panel Fast 3 Months E78.00 - Pure hypercholesterolemia, unspecified Lipid Panel 3 Months E78.00 - Pure hypercholesterolemia, unspecified TSH reflex Free T4 Today R79.89 - Other specified abnormal findings of blood chemistry, Z00.00 - Encounter for general adult medical examination without abnormal findings Referrals Ophthalmology Referral Z01.00 - Encounter for examination of eyes and vision without abnormal findings Podiatry Referral B35.1 - Tinea unguium Medications: New pravastatin 10 mg PO BEDTIME 30 tabs 3RF E78.00 - Pure hypercholesterolemia, unspecified Discontinued rosuvastatin Discontinued Reason: Insurance Denied 5 mg PO DAILY 30 tabs 3RF Coding Level of Care Code New Pt Prev Care 40-64y(26332) Diagnoses Onychomycosis B35.1 Hypercholesteremia E78.00 Type 2 diabetes mellitus E11.9 Elevated TSH R79.89 Physical exam, annual Z00.00 Additional Codes SHELLIE-7 Assessment Billing - SHELLIE-7 Assessment Tool: SHELLIE-7 Assessment 36095 ([id number])
[2022-12-21 10:48] VITALS: BP 148/80; PULSE 73; O2SAT 99; BMI 37.2
== END 2022-12-21 11:35 | disposition home or self-care (01) ==
PROVIDERS: Visit Provider Nurse Practitioner Family
DX: Z00.00 Encounter for general adult medical examination without abnormal findings (principal); E11.9 Type 2 diabetes mellitus without complications; B35.1 Tinea unguium; E78.00 Pure hypercholesterolemia, unspecified; R79.89 Other specified abnormal findings of blood chemistry
CPT/HCPCS: 99386

== ENCOUNTER 2023-02-04 06:34 | Outpatient (REF) | payer OTHER, SELFPAY ==
[2023-02-04 09:11] LABS: Alanine Aminotransferase 32 U/L (0-40); Albumin Level 4.3 g/dL (3.5-5.0); Alkaline Phosphatase 51 U/L (39-117); Anion Gap 13 (12-20); Aspartate Amino Transferase 21 U/L (5-37); Bilirubin Total 0.6 mg/dL (0.0-1.0); Blood Urea Nitrogen 8 mg/dL (9-16); Calcium 9.8 mg/dL (8.4-10.2); Carbon Dioxide 28 mmol/L (22-29); Chloride 102 mmol/L (96-108); Cholesterol 279 mg/dL (<200); Estimated Glomerular Filt Rate > 60; Glucose Fasting 134 mg/dL (60-99); HDL Cholesterol 46 mg/dL (>40); LDL Cholesterol Calculated 189 mg/dL (<100); Potassium 3.8 mmol/L (3.3-5.1); Sodium 139 mmol/L (135-145); Triglycerides 220 mg/dL (<150)
[2023-02-04 09:30] LABS: TSH reflex Free T4 4.96 uIU/mL (0.32-4.0)
[2023-02-04 11:16] LABS: Free T4 (Free Thyroxine) 0.94 ng/dL (0.71-1.85)
== END 2023-02-04 06:35 | disposition home or self-care (01) ==
LOC: HO.LAB 06:34
PROVIDERS: PCP Nurse Practitioner Family; Visit Provider Nurse Practitioner Family
DX: Z00.00 Encounter for general adult medical examination without abnormal findings (principal); E78.00 Pure hypercholesterolemia, unspecified; R79.89 Other specified abnormal findings of blood chemistry; Z11.8 Encounter for screening for other infectious and parasitic diseases
CPT/HCPCS: 36415; 80053; 80061; 84439; 84443

== ENCOUNTER 2023-02-04 14:20 | Outpatient (AMB) | payer OTHER, SELFPAY ==
--- NOTE | 2023-02-04 14:27 | A.OFFPC_ITS ---
Vital Signs 02/04/23 14:28 Height 5 ft 8 in Weight 239 lb BMI 36.3 BP 148/92 H Blood Pressure Location Lt brachial Position Sitting Pulse 87 Pulse Source Pulse Oximeter Pulse Oximetry (%) 98 Oxygen Delivery Method Room Air Intake Visit Reasons: DM follow up Intake Note: Patient has been congested since tuesday. Allergies pravastatin Adverse Reaction (Severe, Verified 02/04/23 14:47) Diarrhea Medication List - Last Reconciled 02/04/23 by AMANDA Saldaña metformin 500 mg PO BID Tobacco use date assessed: 12/21/22 Dental Screening Dental Screen Date: 02/04/23 Did you have a dental visit in the last 12 months?: Yes Did you have a dental problem in the last 6 months where you did not have access to dental care?: No Was dental information given to patient?: Patient has dentist HPI HPI Comments History of Present Illness Details [age] year male past medical history significant for hypercholesteremia, hypertension 2 diabetes mellitus and elevated TSH. Patient last seen in October presents today for follow-up visit. Hemoglobin A1c 9.8% patient reports has been forgetting his 2nd dose metformin and evenings. Will increase metformin to a 1000 mg in the morning and 500 mg night. Patient also stop taking his pravastatin as it was causing him to have diarrhea, will trial atorvastatin. Last LDL 189, LDL goal less 100. Patient's blood pressure also elevated 148/92 and for the 3 follow-up has been consistently elevated. Will start patient on lisinopril mg daily. Patient reports mild sinus congestion since Tuesday denies any fever chills, cough for shortness of breath. Denies any loss of taste or smell. Patient advised to take [id number] sinus medications in if no improvement please follow-up in office or if he develops any above-listed symptoms to get soft for COVID. Patient agreeable. [facility], [facility] Medical History (Updated 02/04/23 @ 15:03 by AMANDA Saldaña) Hypercholesteremia Type 2 diabetes mellitus Surgical History H/O hernia repair Family History Mother Diabetes Father No problems noted. Maternal Aunt Breast cancer Social History Household Members: Spouse Housing: Apartment Do you presently have visiting nurse or other home services: No Alcohol intake: current Alcohol intake frequency: holidays/special occasions only Patient Tobacco Use Status: Never used Tobacco e-Cigarette/Vaping Use: Never Used service: No Current occupational status: employed Current occupational exposures/hazards: No Cognitive needs: No Hearing needs: No Vision needs: No Questionnaire PHQ-9 Over the last 2 weeks, how often have you been bothered by any of the following problems? 1. Little interest or pleasure in doing things: not at all 2. Feeling down, depressed, or hopeless: not at all 3. Trouble falling or staying asleep, or sleeping too much: not at all 4. Feeling tired or having little energy: not at all 5. Poor appetite or overeating: not at all 6. Feeling bad about yourself - or that you are a failure or have let yourself or your family down: not at all 7. Trouble concentrating on things, such as reading the newspaper or watching television: not at all 8. Moving or speaking so slowly that other people could have noticed. Or the opposite - being so fidgety or restless that you have been moving around a lot more than usual: not at all 9. Thoughts that you would be better off or of hurting yourself in some way: not at all Total score: 0 Depression Screening Interpretation: Negative 23758 - PHQ-9 Billing: Yes Source: Developed by Drs. Henry Arias, Shekhar Rueda and colleagues, with an educational stefanie from [employer]. Thrive Questionnaire Date Thrive assessed: 12/21/22 AUDIT C Alcohol Use Questionnaire (AUDIT-C) 1. How often do you have a drink containing alcohol?: Never 3. How often do you have six or more drinks on one occasion?: Never Total Score: 0 SHELLIE-7 AMB Questionnaire SHELLIE-7 Date SHELLIE - 7 assessed: 12/21/22 Source: Developed by Drs. Henry Arias, Shekhar Rueda and colleagues, with an educational stefanie from [employer]. Review of Systems Const Denies chills, Denies fatigue, Denies fever(s) and Denies poor appetite Eyes Denies no additional complaints ENT Reports Normal hearing present Card Denies chest pain, Denies syncope, Denies rapid heart rate and Denies dyspnea Resp Denies cough and Denies dyspnea GI Denies change in stool character, Denies constipation, Denies diarrhea, Denies nausea and Denies vomiting Denies dysuria, Denies urinary frequency and Denies urinary urgency Neuro Reports Normal hearing present, Denies confusion and Denies syncope Psych Denies confusion Endo Denies fatigue Physical exam (Primary Care) Vital Signs: Last Vital Signs Pulse 87 02/04/23 14:28 BP 148/92 H 02/04/23 14:28 Pulse Ox 98 02/04/23 14:28 Oxygen Delivery Method Room Air 02/04/23 14:28 BMI result Body Mass Index 36.3 Tobacco/Smoking Status: Tobacco use Status Tobacco use date assessed 12/21/22 02/04/23 14:29 Patient Tobacco Use Status Never used Tobacco 02/04/23 14:29 e-Cigarette/Vaping Use Never Used 02/04/23 14:29 PHQ-9: PHQ-9 Score PHQ-9: Total score 0 02/04/23 14:47 Depression Screening Interpretation: Negative Thrive Assessment: Date of Thrive Assessment Date Thrive assessed 12/21/22 02/04/23 14:29 Const General: No confusion Orientation/consciousness: No confusion HENMT Head: Yes normocephalic and Yes atraumatic Eyes Conjunctivae: conjunctivae normal Chest Chest palpation & inspection: normal inspection of the chest Resp Effort & Inspection: normal respiratory effort Auscultation: clear to auscultation bilaterally, no crackles, no rhonchi and no wheezes Cardio Rate: regular rate Rhythm: regular rhythm Heart sounds: S1 normal heart sound present and S2 normal heart sound present GI Inspection: Yes normal to inspection Neuro General: No confusion Cranial nerves: Yes Normal hearing present Extrem General: No edema Results AMB Hemoglobin A1c AMB Hemoglobin A1c 9.8 % Last Edit by Skylar Kimbrough CMA on 02/04/23 14 :50 Assessment and Plan Assessment & Plan (1) Routine screening for STI (sexually transmitted infection): Code(s): Z11.3 - Encounter for screening for infections with a predominantly sexual mode of transmission Plan: Routine STI screening labs Entered as requested by patient. (2) Hypertension: Code(s): I10 - Essential (primary) hypertension Plan: Will start lisinopril 5 mg daily. Blood pressure goal less than 140/90. Follow low-salt diet exercise. (3) Elevated TSH: Code(s): R79.89 - Other specified abnormal findings of blood chemistry Plan: TSH 4.96, normal free T4 ,Will repeat TSH in 3 months. (4) Hypercholesteremia: Code(s): E78.00 - Pure hypercholesterolemia, unspecified Plan: Given patient states pravastatin caused him to have diarrhea bowel try atorvastatin 10 mg at bedtime. LDL goal less than 100. Avoid fried foods, chicken skin, eggs, butter,margarine, pastries and? red meat. (5) Type 2 diabetes mellitus: Code(s): E11.9 - Type 2 diabetes mellitus without complications Plan: Will increase metformin to 1000 mg q.a.m. and 500 mg q.p.m. Patient educated to decrease the amount of carbohydrate intake such as pasta, bread, rice and potatoes are all sugar in addition to the sweet stuff. Remember that fruits are good but they also have sugar.Hemoglobin A1c goal of less than 6.5% Plan Follow-up in 3 months. Orders: Orders Comprehensive [place]. Panel Fast 3 Months I10 - Essential (primary) hypertension Lipid Panel 3 Months Z13.220 - Encounter for screening for lipoid disorders TSH reflex Free T4 3 Months Z13.29 - Encounter for screening for other suspected endocrine disorder HIV Ab/Ag Today Z11.3 - Encounter for screening for infections with a predominantly sexual mode of transmission Syphilis Screen Today Z11.3 - Encounter for screening for infections with a predominantly sexual mode of transmission Hepatitis B,C Profile Today Z11.3 - Encounter for screening for infections with a predominantly sexual mode of transmission Hemoglobin A1c 3 Months Z11.3 - Encounter for screening for infections with a predominantly sexual mode of transmission AMB Hemoglobin A1c Today Z13.9 - Encounter for screening, unspecified CT NG by PCR Today Z11.8 - Encounter for screening for other infectious and parasitic diseases Medications: New lisinopril 5 mg PO DAILY 30 tabs 3RF I10 - Essential (primary) hypertension atorvastatin 10 mg PO BEDTIME 30 tabs 3RF Changed From metformin 500 mg PO BID 60 tabs 3RF To metformin Take 1,000mg in the morning and 500mg in pm 500 mg PO BID 90 tabs 3RF Coding Level of Care Code Est Pt Level 4 (48193) Diagnoses Routine screening for STI (sexually transmitted infection) Z11.3 Hypertension I10 Elevated TSH R79.89 Hypercholesteremia E78.00 Type 2 diabetes mellitus E11.9
[2023-02-04 14:28] VITALS: BP 148/92; PULSE 87; O2SAT 98; BMI 36.3
== END 2023-02-04 14:58 | disposition home or self-care (01) ==
PROVIDERS: PCP Nurse Practitioner Family; Visit Provider Nurse Practitioner Family
DX: E11.9 Type 2 diabetes mellitus without complications (principal)
CPT/HCPCS: 83036; 99214

== ENCOUNTER 2023-02-10 13:17 | Outpatient (AMB) | payer OTHER, SELFPAY ==
[2023-02-10 13:33] VITALS: BP 120/80; PULSE 69; BMI 36.2
--- NOTE | 2023-02-10 13:33 | MHC.OFFVIS ---
Intake Vital Signs 02/10/23 13:33 Height 5 ft 8 in Weight 238 lb 1.588 oz BMI 36.2 BP 120/80 Blood Pressure Location Lt brachial Position Sitting Pulse 69 Intake Visit Reasons: Follow up /syncope Intake Note: Follow-up dx syncope had last year didn't have insurance so was never seen not having any issue at this time Job Setter Required: Yes Job Setter Name: Sherine trevizo Senior Designer/Art Director: Senior Designer/Art Director Present Accompanied by: Daughter Allergies pravastatin Adverse Reaction (Severe, Verified 02/04/23 14:47) Diarrhea Medication List - Last Reconciled 02/10/23 by Kiran Mora MD atorvastatin 10 mg PO BEDTIME lisinopril 5 mg PO DAILY metformin 500 mg PO BID HPI HPI Comments History of Present Illness Details Derian comes for follow-up after a long gap. Last year was admitted episode of syncope. History was obtained help of visual associate. Since then patient has had no recurrent symptoms. He said did not follow-up with testing or in the office due to insurance issues. He said he has no new symptoms at this point time. Taking all his medications. Denies exertional chest pain or shortness of breath. No palpitations or lightheadedness. Patient is accompanied by his daughter [facility] Medical History Hypercholesteremia Type 2 diabetes mellitus Surgical History H/O hernia repair Family History Mother Diabetes Father No problems noted. Maternal Aunt Breast cancer Social History Household Members: Spouse Housing: Apartment Do you presently have visiting nurse or other home services: No Alcohol intake: current Alcohol intake frequency: holidays/special occasions only Patient Tobacco Use Status: Never used Tobacco e-Cigarette/Vaping Use: Never Used service: No Current occupational status: employed Current occupational exposures/hazards: No Cognitive needs: No Hearing needs: No Vision needs: No Review of Systems Const Denies chills, Denies daytime sleepiness, Denies fatigue, Denies fever(s), Denies frequent falls, Denies poor appetite, Denies snoring, Denies stops breathing during sleep, Denies weakness, Denies weight gain and Denies weight loss Eyes Denies loss of vision ENT Denies dizziness and Denies hearing loss Card Denies chest pain, Denies claudication, Denies leg edema, Denies lightheadedness, Denies palpitations, Denies dyspnea, Denies dyspnea on exertion and Denies orthopnea Resp Denies cough, Denies excessive phlegm production, Denies dyspnea, Denies dyspnea on exertion, Denies snoring and Denies wheezing GI Denies abdominal pain, Denies hematochezia, Denies change in bowel habits, Denies nausea and Denies vomiting Denies dysuria and Denies urinary frequency Musc Denies arthralgias, Denies muscle weakness, Denies numbness and Denies other (frequent falls) Skin/Breast Denies nail changes and Denies rash Neuro Denies Abnormal speech present, Denies dizziness, Denies frequent falls, Denies loss of vision, Denies memory loss, Denies numbness and Denies weakness Psych Denies depression and Denies memory loss Endo Denies fatigue and Denies palpitations Efraín/Lymph Reports easy bruising and Reports other (anemia) Aller/Immun Denies wheezing Physical Exam Vital Signs: Last Vital Signs Pulse 69 02/10/23 13:33 BP 120/80 02/10/23 13:33 BMI result Body Mass Index 36.2 Last Vital Signs Temp 97.5 F 02/14/22 10:44 Pulse 76 02/14/22 10:44 Resp 16 02/14/22 10:44 BP 141/91 H 02/14/22 10:44 Pulse Ox 98 02/14/22 10:44 O2 Del Method 02/14/22 10:44 BMI result Body Mass Index 67.0 Const General: cooperative, comfortable, no acute distress, alert and awake Nutritional Appearance: obese Orientation/consciousness: patient oriented x3 Limitations: no limitations HEENT Head: Yes normocephalic and Yes atraumatic Neck Neck: Yes trachea midline, Yes supple and Yes no JVD Resp Effort & Inspection: normal respiratory effort Auscultation: clear to auscultation bilaterally Cardio Jugular venous distension: no JVD Palpation: normal PMI Rate: regular rate Rhythm: regular rhythm Heart sounds: S1 normal heart sound present, S2 normal heart sound present, no click, no gallops and no murmurs GI Auscultation: normal bowel sounds Skin General skin exam: no rashes or lesions noted Neuro General: patient oriented x3 and no focal motor deficits Speech: No Abnormal speech present Extrem General: Yes no clubbing, cyanosis or edema Office Procedures EKG Details: EKG shows normal sinus rhythm nonspecific T-wave inversion inferior leads [id number], Complete Assessment & Plan Assessment & Plan (1) Syncope: Code(s): R55 - Syncope and collapse Plan: Patient prior history of syncope with no recurrent events. At this point time unclear etiology of syncope. Will obtain a Holter and echocardiogram to further evaluate for any significant abnormality that may increase his risk for sudden cardiac that. If these are within normal limits. No further workup is indicated unless he has recurrent symptoms. His blood pressure is currently well optimized on current therapy. Continue aggressive risk factor modification with control of diabetes as well as hyperlipidemia. Will follow up in the clinic if need be. Thank you for allowing me to partake in his care Orders: Orders CA echo transthoracic complete 02/10/23 R55 - Syncope and collapse ECG holter monitor 48 hour 02/10/23 R55 - Syncope and collapse Coding Level of Care Code Est Pt Level 3 (36074) Diagnoses Syncope R55 CPT Codes EKG - CPT: 84896-[id number], Complete ([id number])
== END 2023-02-10 13:53 | disposition home or self-care (01) ==
PROVIDERS: PCP Nurse Practitioner Family; Visit Provider Internal Medicine Cardiovascular Disease
DX: R55 Syncope and collapse (principal)
CPT/HCPCS: 93010; 99213

== ENCOUNTER → 2023-02-10 13:17 | Outpatient (BNVA) | payer OTHER, SELFPAY | PROVIDERS: PCP Nurse Practitioner Family; Visit Provider Internal Medicine Cardiovascular Disease | DX: R55 Syncope and collapse (principal) | CPT/HCPCS: 93005; 99212 ==

== ENCOUNTER 2023-02-24 15:50 | Outpatient (REF) | payer OTHER, SELFPAY ==
[2023-02-25 09:01] LABS: Syphilis Screen Nonreactive (Nonreactive)
[2023-02-25 09:25] LABS: HBS Num1 0.29 mIU/mL (0-7.99); HBc Num1 0.09 S/CO (0.00-0.79); HBsAGNum1 0.33 S/CO (0.00-0.99); HIV AB/AG Nonreactive (Nonreactive); HIV Num 1 0.06 S/CO (0.00-0.99); Hepatitis B Core Antibody Nonreactive (Nonreactive); Hepatitis B Surface Antigen Negative (Negative); ~HepC Num1 0.11 S/CO (0.00-0.79); ~Hepatitis B Surface Antibody NONREACTIVE (Nonreactive); ~Hepatitis C Antibody Nonreactive (Nonreactive)
[2023-02-25 09:59] LABS: CT PCR NOT DETECTED (Not Detect.); NG PCR NOT DETECTED (Not Detect.)
== END 2023-02-24 15:51 | disposition home or self-care (01) ==
LOC: HO.LAB 15:50
PROVIDERS: PCP Nurse Practitioner Family; Visit Provider Nurse Practitioner Family
DX: Z11.3 Encounter for screening for infections with a predominantly sexual mode of transmission (principal); Z11.4 Encounter for screening for human immunodeficiency virus [HIV]
CPT/HCPCS: 0353U; 36415; 86704; 86706; 86780; 86803; 87340; 87389

== ENCOUNTER 2023-05-09 06:03 | Outpatient (REF) | payer OTHER, SELFPAY ==
[2023-05-09 07:38] LABS: Estimated Average Glucose 154 mg/dL
[2023-05-09 08:07] LABS: Alanine Aminotransferase 22 U/L (0-40); Albumin Level 4.3 g/dL (3.5-5.0); Alkaline Phosphatase 85 U/L (39-117); Anion Gap 11 (12-20); Aspartate Amino Transferase 18 U/L (5-37); Bilirubin Total 0.8 mg/dL (0.0-1.0); Blood Urea Nitrogen 11 mg/dL (9-16); Calcium 9.6 mg/dL (8.4-10.2); Carbon Dioxide 29 mmol/L (22-29); Chloride 102 mmol/L (96-108); Cholesterol 170 mg/dL (<200); Estimated Glomerular Filt Rate > 60; Glucose Fasting 112 mg/dL (60-99); HDL Cholesterol 54 mg/dL (>40); LDL Cholesterol Calculated 91 mg/dL (<100); Potassium 4.4 mmol/L (3.3-5.1); Sodium 138 mmol/L (135-145); Total Protein 7.7 g/dL (6.5-8.0); Triglycerides 128 mg/dL (<150)
[2023-05-09 08:15] LABS: TSH reflex Free T4 5.79 uIU/mL (0.32-4.0)
[2023-05-09 08:56] LABS: Free T4 (Free Thyroxine) 0.93 ng/dL (0.71-1.85)
== END 2023-05-09 06:04 | disposition home or self-care (01) ==
LOC: HO.LAB 06:03
PROVIDERS: PCP Nurse Practitioner Family; Visit Provider Nurse Practitioner Family
DX: Z13.29 Encounter for screening for other suspected endocrine disorder (principal); Z13.220 Encounter for screening for lipoid disorders; I10 Essential (primary) hypertension
CPT/HCPCS: 36415; 80053; 80061; 83036; 84439; 84443

== ENCOUNTER 2023-05-20 13:01 | Outpatient (AMB) | payer OTHER, SELFPAY ==
--- NOTE | 2023-05-20 13:08 | A.OFFVIS_ITS ---
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 Finger Grip Machine Operator Required: No Allergies pravastatin Adverse Reaction (Severe, Verified 05/20/23 13:09) Diarrhea Medication List - Last Reconciled 05/20/23 by Rosalind Roberson MD atorvastatin 10 mg PO BEDTIME lisinopril 5 mg PO DAILY metformin 500 mg PO BID HPI HPI Comments History of Present Illness Details 42y/o male comes for neurological evalua tion . Last year he had 2 episodes of loss of consciousness. The [facility] his was driving. when he got out of the car he felt dizzy and passed out. He remembers feeling tired.He was taken to [facility]- he was mildly lethargic but was oriented. His blood sugars were high in 250s. He did not have health insurance at that time and his diabetes was not controlled. He was seen by cardiology . Early this year he had another episode of syncope.He felt dizzy , he was driving but did not feel well, asked his son to drive , when he moves to passenger seat , he had vomited and passed out. Both these episodes he describes a s spinning sensation No headaches . no tinnitus. No seizure like activity. His diabetes was still not controlled at that time He had a CT head which showed disproportionately enlarged ventricles. He reports loud snoring and has frequent arousals. [facility] Medical History (Updated 05/20/23 @ 13:46 by Rosalind Roberosn MD) Abnormal head CT Hypersomnia Snoring Syncope Hypercholesteremia Type 2 diabetes mellitus Surgical History H/O hernia repair Family History Mother Diabetes Father No problems noted. Maternal Aunt Breast cancer Social History Household Members: Spouse Housing: Apartment Do you presently have visiting nurse or other home services: No Alcohol intake: current Alcohol intake frequency: holidays/special occasions only Patient Tobacco Use Status: Never used Tobacco e-Cigarette/Vaping Use: Never Used service: No Current occupational status: employed Current occupational exposures/hazards: No Cognitive needs: No Hearing needs: No Vision needs: No Physical Exam Vital Signs: Last Vital Signs Pulse 79 05/20/23 13:09 Resp 16 05/20/23 13:09 BP 138/90 H 05/20/23 13:09 Pulse Ox 98 05/20/23 13:09 Oxygen Delivery Method Room Air 05/20/23 13:09 BMI result Body Mass Index 33.2 Const General: cooperative, healthy appearing, comfortable and no acute distress Nutritional Appearance: overweight Orientation/consciousness: patient oriented x3 Eyes Pupils: Equal, round and reactive pupils present Neck Neck: Yes no meningeal signs Neuro General: patient oriented x3, tone normal, moves all extremities, no meningeal signs and no focal motor deficits Cranial nerves: Yes Facial sensation intact/muscles of mastication intact, Yes Equal, round and reactive pupils present, Yes Bilaterally intact EOM present, Yes Nystagmus not present, Yes Normal facial strength present and Yes Symmetric palate elevation present Cognition (Neuro): normal cognition Gait exam (Neuro): Normal gait present Motor exam (neuro): 5/5 motor strength present throughout Deep tendon reflexes (DTR's): Right triceps reflex intensity grade: 1+, Left triceps reflex intensity grade: 1+, Rt Biceps (C5, C6): 1+, Left biceps reflex intensity grade: 1+, Right brachioradialis reflex intensity grade: 1+ and Left brachioradialis reflex intensity grade: 1+ Coordination: [id number] test normal Assessment & Plan Assessment & Plan (1) Syncope: Comment: ? preceded by vertigo ? Code(s): R55 - Syncope and collapse Plan: EEG MRI brain (2) Abnormal head CT: Comment: shows disproportionate enlargement of ventricles FH/o epilepsy Code(s): R93.0 - Abnormal findings on diagnostic imaging of skull and head, not elsewhere classified Plan: MRI brain to evaluate (3) Snoring: Comment: loud snoring, hypersomnia. Mallampatti grade 4 Code(s): R06.83 - Snoring Plan: Home sleep test to r/o sleep apnea Plan F/u cardiology Orders: Orders MR head/brain wo con Today R55 - Syncope and collapse, R93.0 - Abnormal findings on diagnostic imaging of skull and head, not elsewhere classified EEG electroencephalogram Today R55 - Syncope and collapse RT home sleep study Today G47.10 - Hypersomnia, unspecified, R06.83 - Snoring Coding Level of Care Code New Pt Level 4 (70810) Diagnoses Syncope R[address] R93.0 Snoring R06.83
[2023-05-20 13:09] VITALS: BP 138/90; PULSE 79; RESP 16; O2SAT 98; BMI 33.2
== END 2023-05-20 13:50 | disposition home or self-care (01) ==
PROVIDERS: PCP Nurse Practitioner Family; Visit Provider Psychiatry & Neurology Neurology
DX: R55 Syncope and collapse (principal); R93.0 Abnormal findings on diagnostic imaging of skull and head, not elsewhere classified; R06.83 Snoring
CPT/HCPCS: 99204

== ENCOUNTER → 2023-05-20 13:01 | Outpatient (BNVA) | payer OTHER, SELFPAY | PROVIDERS: PCP Nurse Practitioner Family; Visit Provider Psychiatry & Neurology Neurology | DX: R55 Syncope and collapse (principal); R93.0 Abnormal findings on diagnostic imaging of skull and head, not elsewhere classified; R06.83 Snoring | CPT/HCPCS: 99202 ==

== ENCOUNTER 2023-05-23 04:38 | Day surgery (SDC) | payer OTHER, SELFPAY ==
[2023-05-23] VITALS (10 sets, daily range): BP systolic 133–173; BP diastolic 75–93; PULSE 62–81; RESP 16–18; TEMP 36.2–36.8; O2SAT 95–100; BMI 33.1
--- NOTE | ~2023-05-23 | US_ITS ---
EXAMINATION: US ABDOMEN LIMITED CLINICAL INFORMATION: Right upper quadrant pain. COMPARISON: None available. TECHNIQUE: Real-time imaging of the right upper quadrant abdominal viscera. FINDINGS: GALLBLADDER: The gallbladder is physiologically distended without evidence of stones, sludge, polyps, wall thickening or pericholecystic fluid. Negative sonographic Medrano's sign. COMMON BILE DUCT: Normal in caliber measuring 0.4 cm in diameter. US/US abdomen limited IMPRESSION: Unremarkable focused sonographic evaluation of the gallbladder.
--- NOTE | ~2023-05-23 | CT_ITS ---
EXAMINATION: CT ABDOMEN AND PELVIS WITHOUT CONTRAST CLINICAL INFORMATION: Right abdominal pain. COMPARISON: Right upper quadrant ultrasound 05/23/2023 TECHNIQUE: Multidetector volumetric imaging was performed from the superior aspect of the liver through the pubic symphysis. Sagittal and coronal reformatted images were obtained on the technologist's workstation. This CT examination was performed using dose optimization techniques as appropriate, variously including the following: *Automated exposure control *Adjustment of mA and/or kV according to patient size (this includes techniques or standardized protocols for targeted exams where dose is matched to indication/reason for exam; i.e. extremities or head) *Use of iterative reconstruction technique DLP: 649 mGy-cm FINDINGS: LUNG BASES: The visualized lung bases are unremarkable. LIVER, GALLBLADDER, AND BILIARY TREE: The noncontrast liver is decreased in attenuation. No biliary ductal dilatation is present. The gallbladder is unremarkable with no evidence of radiopaque gallstones, gallbladder wall thickening, or obvious pericholecystic inflammatory changes. PANCREAS: Unremarkable. SPLEEN: Unremarkable. ADRENAL GLANDS: Unremarkable. KIDNEYS AND URETERS: The kidneys are symmetric in size. No hydronephrosis. No perinephric stranding. BLADDER: Circumferential wall thickening. GASTROINTESTINAL TRACT: The appendix is dilated up to 9 mm. There are subtle surrounding inflammatory changes. No small bowel obstruction. ABDOMINAL WALL: Small fat-containing left inguinal hernia. LYMPH NODES: No bulky lymphadenopathy. VASCULAR: Normal caliber abdominal aorta. PELVIC VISCERA: Enlarged prostate gland. OSSEOUS STRUCTURES: No destructive bone lesions. CT/CT abdomen pelvis wo IV con IMPRESSION: Dilated appendix up to 9 mm with subtle surrounding inflammatory changes. Advise clinical correlation for acute appendicitis.
[2023-05-23 05:41] LABS: MANUAL DIFF FLAG NO
[2023-05-23 05:42] LABS: Basophils Percent Auto 0.3 % (0-2); Eosinophils Absolute Auto 0.1 X10*3/uL (0.0-0.4); Hematocrit 43.9 % (42.0-52.0); Hemoglobin 15.1 g/dl (14.0-18.0); Imm Gran Abs Auto 0.04 X10*3/uL (0.00-0.03); Imm Gran Pct Auto 0.3 % (0.0-0.4); Lymphocytes Absolute Auto 1.6 X10*3/uL (1.2-4.9); Lymphocytes Percent Auto 12.3 % (20-40); Mean Corpuscular HGB Conc 34.4 g/dl (31.0-36.0); Mean Corpuscular Hemoglobin 31.2 pg (27.0-33.0); Mean Corpuscular Volume 90.7 fL (80.0-98.0); Mean Platelet Volume 9.6 fL (9.4-12.4); Monocytes Absolute Auto 1.2 X10*3/uL (0.1-1.2); Neutrophils Absolute Auto 10.3 x10*3/uL (2.0-8.3); Neutrophils Percent Auto 77.1 % (45-73); Platelet Count 276 X10*3/uL (160-400); Red Blood Count 4.84 X10*6/uL (4.60-5.80); Red Cell Distribution Width 13.2 % (11.0-16.0); White Blood Count 13.3 X10*3/uL (4.8-10.8)
[2023-05-23 05:44] LABS: Appearance Urine Clear; Color Urine Yellow; Glucose Urine UA 100 mg/dL (Negative); Leukocyte Esterase Urine Negative (Negative); Nitrite Urine Negative (Negative); PH 5.5 (5.0-9.0); Urine Blood Negative (Negative); Urine Ketones Negative (Negative); Urine Protein Negative (Neg-Trace)
--- NOTE | 2023-05-23 05:48 | ED.ABDPAIN ---
HPI - Abdominal Pain General Chief Complaint: Abdominal Pain Stated Complaint: Abdominal Pain Time Seen by Provider: 05/23/23 05:23 Source: patient and spanish interpreter Mode of arrival: ambulatory History of Present Illness HPI narrative: 42-year-old male with history of diabetes, hypertension, hyperlipidemia presents with acute onset of right upper quadrant/epigastric pain that woke him up from sleep associated with nausea and vomiting as well as chills. He denies any history of intra-abdominal surgeries, denies obstipation and denies urinary symptoms. Related Data Previous Rx's Medication Instructions Recorded atorvastatin 10 mg tablet 10 mg PO BEDTIME #30 tabs 02/04/23 lisinopril 5 mg tablet 5 mg PO DAILY #30 tabs 02/04/23 metformin 500 mg tablet 500 mg PO BID #90 tabs 05/02/23 Allergies Allergy/AdvReac Type Severity Reaction Status Date / Time pravastatin AdvReac Severe Diarrhea Verified 05/23/23 04:43 Review of Systems Review of Systems Pertinent positives and negatives as stated in HPI PMFSH Past Medical History Source: nursing notes reviewed Medical History Abnormal head CT Hypersomnia Snoring Syncope Hypercholesteremia Type 2 diabetes mellitus Surgical History H/O hernia repair Family History Family History Mother Diabetes Father No problems noted. Maternal Aunt Breast cancer Social History Social History Household Members: Spouse Housing: Apartment Do you presently have visiting nurse or other home services: No Alcohol intake: current Alcohol intake frequency: holidays/special occasions only Alcohol type: beer Patient Tobacco Use Status: Never used Tobacco Smoked in Last 30 Days: No e-Cigarette/Vaping Use: Never Used Use of substances other than those prescribed or required for medical reasons: No Substance Use Type: Marijuana Substance Use Frequency: Occasionally Last Used Substance: Days (ago) Any prior treatment program specific to substance use: No Advance Directives: No Advance Directives Information Provided: No service: No Current occupational status: employed Current occupational exposures/hazards: No Cognitive needs: No Hearing needs: No Vision needs: No Physical Exam ED Vital Signs: Vital Signs - 24 hr 05/23/23 04:41 Temperature 97.9 F Pulse Rate 75 Respiratory Rate 18 Blood Pressure 145/86 H Pulse Oximetry 100 Oxygen Delivery Method Room Air BMI result Body Mass Index 33.1 VITAL SIGNS: Reviewed. GENERAL: Well developed, well nourished, in no acute distress. HEAD: Normocephalic/atraumatic EYES: PERRLA, EOMI EARS: Ext canals without abnormality NOSE: Nares patent bilateral OROPHARYNX: no oral lesions noted, posterior pharynx clear NECK: Supple, no adenopathy LUNGS: Normal breath sounds. No adventitious sounds or accessory muscle use. SpO2<100> CARDIOVASCULAR: Regular rate and rhythm without noted murmurs ABDOMEN: Soft, right upper quadrant tenderness to palpation, Medrano's positive, epigastric tenderness to palpation as well, non-distended with bowel sounds. MUSCULOSKELETAL: No tenderness, deformities, or effusions noted on gross inspection. EXTREMITIES: No cyanosis, clubbing or edema. SKIN: Inspection of the skin reveals no rashes NEUROLOGIC: Alert and oriented x 4. Strength and sensation to light touch were grossly intact x 4. Medical Decision Making Medical Decision Making [facility] Narrative: 42-year-old male with history and clinical presentation, DDX: Gastritis, pancreatitis, cholecystitis Reviewed all investigations and hematologic indices demonstrated leukocytosis with a left shift but no anemia or thrombocytopenia. Chemistry indices to not demonstrate an DEANNA nor is there electrolyte or liver enzyme derangements. Lipase is within normal limits and glucose is mildly elevated and no evidence to suggest DKA are HHS. Urinalysis is negative for UTI. Patient has received IV fluids and pain medication. Signed out to Dr. Mullins - follow-up ultrasound of right upper quadrant route to rule out cholecystitis Differential Diagnosis Differential Diagnoses: The differential diagnosis associated with the presentation includes Please see the discussion above Admission/Observation Consideration of admission/observation: Escalation of care including admission/observation considered Please see the discussion above Lab Data [facility] Lab Attestation statement: I reviewed the patient's lab results. Please see the discussion above 05/23/23 05:26 05/23/23 05:26 Labs: Lab Results 05/23/23 Range/Units 05:26 WBC 13.3 H (4.8-10.8) X10*3/uL RBC 4.84 (4.60-5.80) X10*6/uL Hgb 15.1 (14.0-18.0) g/dl Hct 43.9 (42.0-52.0) % MCV 90.7 (80.0-98.0) fL MCH 31.2 (27.0-33.0) pg MCHC 34.4 (31.0-36.0) g/dl RDW 13.2 (11.0-16.0) % Plt Count 276 (160-400) X10*3/uL MPV 9.6 (9.4-12.4) fL Immature Gran % (Auto) 0.3 (0.0-0.4) % Neut % (Auto) 77.1 H (45-73) % Lymph % (Auto) 12.3 L (20-40) % [place] % (Auto) 9.0 (2-11) % Eos % (Auto) 1.0 (0-4) % Baso % (Auto) 0.3 (0-2) % Lymph # (Auto) 1.6 (1.2-4.9) X10*3/uL [place] # (Auto) 1.2 (0.1-1.2) X10*3/uL Eos # (Auto) 0.1 (0.0-0.4) X10*3/uL Baso # (Auto) 0.0 (0.0-0.2) X10*3/uL Abs Immat Gran (auto) 0.04 H (0.00-0.03) X10*3/uL Absolute Neuts (auto) 10.3 H (2.0-8.3) x10*3/uL Absolute Nucleated RBC 0.000 (0.0-0.012) X10*3/uL Nucleated RBC % (auto) 0.0 (0.0-0.2) /100WBC Sodium 138 (135-145) mmol/L Potassium 3.7 (3.3-5.1) mmol/L Chloride 99 (96-108) mmol/L Carbon Dioxide 25 (22-29) mmol/L Anion Gap 18 (12-20) BUN 8 L (9-16) mg/dL Creatinine 0.84 (0.5-1.4) mg/dL Estim Creat Clear Calc 129.2 Estimated GFR > 60 Random Glucose 184 H (60-115) mg/dL Calcium 9.4 (8.4-10.2) mg/dL Total Bilirubin 0.8 (0.0-1.0) mg/dL Direct Bilirubin 0.3 (0.0-0.5) mg/dL AST 17 (5-37) U/L ALT 25 (0-40) U/L Alkaline Phosphatase 67 (39-117) U/L Total Protein 7.6 (6.5-8.0) g/dL Albumin 4.2 (3.5-5.0) g/dL Lipase 12 (8-78) U/L Urine Color Yellow Urine Appearance Clear Urine pH 5.5 (5.0-9.0) Ur Specific [place] 1.020 (1.005-1.025) Urine Protein Negative (Neg-Trace) mg/dL Urine Glucose (UA) 100 H (Negative) mg/dL Urine Ketones Negative (Negative) mg/dL Urine Blood Negative (Negative) Urine Nitrite Negative (Negative) Ur Leukocyte Esterase Negative (Negative) Medications Administered Generic Name Dose Route Start Last Admin Trade Name Shahzad PRN Reason Stop Dose Admin Sodium Chloride 1,000 mls @ 999 mls/hr 05/23/23 06:00 05/23/23 06:24 Ns IV 05/23/23 07:00 999 mls/hr .Q1H1M ELODIA Administration Discontinued Medications Generic Name Dose Route Start Last Admin Trade Name Shahzad PRN Reason Stop Dose Admin Ketorolac Tromethamine 15 mg 05/23/23 05:54 05/23/23 06:24 Ketorolac Tromethamine 30 Mg/Ml Vial IVPUSH 05/23/23 05:55 15 mg ONCE ONE Administration Discharge Plan Discharge Clinical Impression: Abdominal pain Prescriptions: No Action metformin 500 mg tablet 500 mg PO BID Qty: 90 3RF Rx Instructions: Take 1,000mg in the morning and 500mg in pm lisinopril 5 mg tablet 5 mg PO DAILY Qty: 30 3RF atorvastatin 10 mg tablet 10 mg PO BEDTIME Qty: 30 3RF
--- NOTE | 2023-05-23 05:51 | PC.NURSE ---
Patient is Urdu speaking male. Patient presenting to ED for c/o sharp pain in bilateral upper abdomen since 0200 this morning. Patient endorses nausea, no vomiting, no diarrhea. + BSx4. 20n G IV line placed in Left AC, blood drawn and sent to lab for processing. Call sosa placed within patient's reach.
[2023-05-23 05:55] LABS: Alanine Aminotransferase 25 U/L (0-40); Albumin Level 4.2 g/dL (3.5-5.0); Alkaline Phosphatase 67 U/L (39-117); Anion Gap 18 (12-20); Aspartate Amino Transferase 17 U/L (5-37); Bilirubin Direct 0.3 mg/dL (0.0-0.5); Bilirubin Total 0.8 mg/dL (0.0-1.0); Blood Urea Nitrogen 8 mg/dL (9-16); Calcium 9.4 mg/dL (8.4-10.2); Carbon Dioxide 25 mmol/L (22-29); Chloride 99 mmol/L (96-108); Creatinine Clr Calc Pharmacy 129.2; Estimated Glomerular Filt Rate > 60; Glucose Random 184 mg/dL (60-115); Lipase 12 U/L (8-78); Potassium 3.7 mmol/L (3.3-5.1); Sodium 138 mmol/L (135-145); Total Protein 7.6 g/dL (6.5-8.0)
[2023-05-23] MEDS: 0.9 % Sodium Chloride 1,000 ML 999 ML IV (06:24)
[2023-05-23] MEDS: Ketorolac Tromethamine 30 MG/ML VIAL 15 MG IVPUSH (06:24)
[2023-05-23] MEDS: Acetaminophen 1,000 MG/100 ML PIGGYBACK 400 MG IV (10:21)
--- NOTE | 2023-05-23 10:28 | P.HPGS_ITS ---
History of Present Illness History of Present Illness Date of Service: 05/23/23 Chief complaint: Abdominal Pain Narrative: Derian Mathis is a 42 year old male presenting with complaints of abdominal pain in the right upper quadrant right lower quadrant since early this morning . Pain remains in the right quadrants and increases with movement. He also reports anorexia but denies nausea or vomiting. Denies fever or chills. Pain on presentation was 10/10 but is improved now to 7/10. He denies a previous history of similar symptoms. He presented to the emergency department for further evaluation was noted to have an elevated WBC of 13. Subsequent CT abdomen and pelvis revealed a thickened appendix with surrounding inflammation suggestive of acute appendicitis. He is admitted to the surgical service for management of acute appendicitis. Review of Systems Review of Systems: Yes all other systems are reviewed and are negative Constitutional: Constitutional: Denies chills, Denies fever(s), Denies headache(s), Denies poor appetite and Denies weakness ENT: Denies headache(s) Cardiovascular: Cardiovascular: Denies chest pain, Denies irregular heart rhythm, Denies palpitations and Denies dyspnea Respiratory: Respiratory: Denies cough, Denies excessive phlegm production and Denies dyspnea Gastrointestinal: Gastrointestinal: Denies abdominal pain, Denies bloating, Denies change in bowel habits, Denies constipation, Denies heartburn, Denies diarrhea, Denies nausea and Denies vomiting Genitourinary: Genitourinary: Denies difficulty urinating and Denies urinary frequency Musculoskeletal: Musculoskeletal: Denies back pain, Denies muscle weakness and Denies numbness Integumentary/Breasts: Skin/Breast: Denies changing lesions and Denies unusual bruising Neurologic: Denies headache(s), Denies numbness, Denies paresthesias and Denies weakness Psychiatric: Psychiatric: Denies anxiety and Denies depression Endocrine: Endocrine: Denies palpitations Hematologic/Lymphatic: Hematologic/Lymphatic: Denies lymphadenopathy PMFSH Past Medical History Medical History Abnormal head CT Hypersomnia Snoring Syncope Hypercholesteremia Type 2 diabetes mellitus Family History Family History Mother Diabetes Father No problems noted. Maternal Aunt Breast cancer Surgical History Surgical History H/O hernia repair Social History Social History Household Members: Spouse Housing: Apartment Do you presently have visiting nurse or other home services: No Alcohol intake: current Alcohol intake frequency: holidays/special occasions only Alcohol type: beer Patient Tobacco Use Status: Never used Tobacco Smoked in Last 30 Days: No e-Cigarette/Vaping Use: Never Used Use of substances other than those prescribed or required for medical reasons: No Substance Use Type: Marijuana Substance Use Frequency: Occasionally Last Used Substance: Days (ago) Any prior treatment program specific to substance use: No Advance Directives: No Advance Directives Information Provided: No service: No Current occupational status: employed Current occupational exposures/hazards: No Cognitive needs: No Hearing needs: No Vision needs: No Meds Allergies Allergy/AdvReac Type Severity Reaction Status Date / Time pravastatin AdvReac Severe Diarrhea Verified 05/23/23 04:43 Active Medications: Current Medications Hydromorphone HCl (Hydromorphone Hcl 0.5 Mg/0.5 Ml Syringe) 0.5 mg IVPUSH Q3H PRN; Protocol PRN Reason: Pain, Severe (Pain Scale 7-10) Lactated Ringer's (Lr) 1,000 mls @ 100 mls/hr IVCONT .Q10H ELODIA Acetaminophen (Ofirmev) 1,000 mg in 100 mls @ 400 mls/hr IV Q6H ELODIA Stop: 05/24/23 04:29 Last Admin: 05/23/23 10:21 Dose: 400 mls/hr Ondansetron HCl (Ondansetron Hcl 4 Mg/2 Ml Vial) 4 mg IVPUSH QID PRN PRN Reason: Nausea Physical Exam Vital Signs: Vital Signs: Last Vital Signs Temp 98.3 F 05/23/23 10:13 Pulse 81 05/23/23 10:13 Resp 16 05/23/23 10:13 BP 141/78 H 05/23/23 10:13 Pulse Ox 100 05/23/23 10:13 O2 Del Method Room Air 05/23/23 10:13 BMI result Body Mass Index 33.1 Const: General: cooperative and no acute distress Nutritional Appearance: well nourished Orientation/consciousness: patient oriented x3 Limitations: no limitations HEENT: Head: Yes normocephalic and Yes atraumatic Ears: hearing grossly normal bilaterally Resp: Effort & Inspection: normal respiratory effort, no audible wheezes, no cough and no respiratory distress Cardio: Jugular venous distension: no JVD GI: Inspection: Yes normal to inspection Palpation (GI): Soft to palpation, Tenderness to palpation present (GI) in the RLQ, in the RUQ and at McBurney's point; with no rebound tenderness and Rovsing's sign negative, no guarding and not rigid Percussion: Yes normal to percussion Auscultation: normal bowel sounds Rectal Exam - Male: Yes deferred Skin: Other: Warm, dry, no rash Neuro: General: patient oriented x3 Extrem: General: Yes no clubbing, cyanosis or edema Results Results Labs: Short CBC 05/23/23 Range/Units 05:26 WBC 13.3 H (4.8-10.8) X10*3/uL Hgb 15.1 (14.0-18.0) g/dl Hct 43.9 (42.0-52.0) % Plt Count 276 (160-400) X10*3/uL BMP 05/23/23 05:26 Sodium 138 Potassium 3.7 Chloride 99 Carbon Dioxide 25 BUN 8 L Creatinine 0.84 Calcium 9.4 Liver Function 05/23/23 Range/Units 05:26 Total Bilirubin 0.8 (0.0-1.0) mg/dL Direct Bilirubin 0.3 (0.0-0.5) mg/dL AST 17 (5-37) U/L ALT 25 (0-40) U/L Alkaline Phosphatase 67 (39-117) U/L Albumin 4.2 (3.5-5.0) g/dL Urine 05/23/23 Range/Units 05:26 Urine Color Yellow Urine Appearance Clear Urine pH 5.5 (5.0-9.0) Ur Specific [place] 1.020 (1.005-1.025) Urine Protein Negative (Neg-Trace) mg/dL Urine Glucose (UA) 100 H (Negative) mg/dL Abdomen CT scan report/results: image reviewed CT scan - pelvis: image reviewed Assessment and Plan (1) Appendicitis, acute: Qualifiers: Acute appendicitis type: with localized peritonitis Appendicitis gangrene presence: without gangrene Appendicitis perforation presence: without perforation Appendicitis abscess presence: without abscess Qualified Code(s): K35.30 - Acute appendicitis with localized peritonitis, without perforation or gangrene Status: Acute Plan 42-year-old male patient presenting with complaints of abdominal pain in the right upper quadrant right lower quadrant found to have acute appendicitis by CT. Laboratories revealed an elevated WBC. On examination the patient is tender in the right lower quadrant without rebound, guarding or rigidity. Findings are suggestive of acute appendicitis. After discussion of the procedure, risks, and alternatives, patient has consented to a laparoscopic or possible open appendectomy. He has been added onto the operative schedule for today. Quality Stroke Does the patient have a stroke diagnosis?: No VTE Prior VTE?: No VTE Risk Level:: Surgical - low VTE Device Contraindication: N/A - Device Ordered VTE Drug Contraindication: Treatment Not Indicated Procedures Date of Service Date of Service: 05/23/23
--- NOTE | 2023-05-23 11:45 | HO.ANESPROP2 ---
HPI - Anesthesia Eval Consult details Narrative: 42 yo male patient for Laparoscopic Appendectomy PMFSH Active Problems Active Problems: All Active Problems (Updated 05/23/23 @ 11:45 by Harriet Brady MD) Appendicitis, acute (Acute) Abdominal pain (Acute) Routine screening for STI (sexually transmitted infection) (Acute) Hypertension (Acute) Elevated TSH (Acute) Onychomycosis (Acute) Abnormal head CT (Acute) Hypersomnia (Acute) Snoring (Acute) Hypercholesteremia (Acute) Type 2 diabetes mellitus (Acute) Denies KANDY Past Medical History Medical History HTN (hypertension) Abnormal head CT Hypersomnia Snoring Hypercholesteremia Type 2 diabetes mellitus Syncope Family History Family History Mother Diabetes Father No problems noted. Maternal Aunt Breast cancer Family history of problems with anesthesia: No Surgical History Surgical History History of vasectomy H/O hernia repair History of Problems with Anesthesia: No Social History Social History Household Members: Spouse Housing: Apartment Do you presently have visiting nurse or other home services: No Alcohol intake: current Alcohol intake frequency: holidays/special occasions only Alcohol type: beer Patient Tobacco Use Status: Never used Tobacco Smoked in Last 30 Days: No e-Cigarette/Vaping Use: Never Used Second Hand Smoke Exposure: No Use of substances other than those prescribed or required for medical reasons: Yes Substance Use Type: Marijuana Substance Use Frequency: Occasionally Last Used Substance: Days (ago) Any prior treatment program specific to substance use: No Are you DNR?: No Advance Directives: No Advance Directives Information Provided: No Advance Directives on File: No service: No Current occupational status: employed Current occupational exposures/hazards: No Cognitive needs: No Hearing needs: No Vision needs: No Meds Allergies Allergy/AdvReac Type Severity Reaction Status Date / Time pravastatin AdvReac Severe Diarrhea Verified 05/23/23 04:43 Active Medications: Current Medications Hydromorphone HCl (Hydromorphone Hcl 0.5 Mg/0.5 Ml Syringe) 0.5 mg IVPUSH Q3H PRN; Protocol PRN Reason: Pain, Severe (Pain Scale 7-10) Lactated Ringer's (Lr) 1,000 mls @ 100 mls/hr IVCONT .Q10H ELODIA Acetaminophen (Ofirmev) 1,000 mg in 100 mls @ 400 mls/hr IV Q6H ELODIA Stop: 05/24/23 04:29 Last Infusion: 05/23/23 10:39 Dose: Infused Ondansetron HCl (Ondansetron Hcl 4 Mg/2 Ml Vial) 4 mg IVPUSH QID PRN PRN Reason: Nausea Exam Height,Weight and Vital Signs: Height 5 ft 8 in Weight 98.883 kg Last Vital Signs Temp 97.4 F 05/23/23 10:59 Pulse 78 05/23/23 10:59 Resp 16 05/23/23 10:59 BP 167/93 H 05/23/23 10:59 Pulse Ox 98 05/23/23 10:59 O2 Del Method Room Air 05/23/23 10:59 Pertinent Lab Results Pertinent Lab Results: Laboratory Tests 05/23/23 05:26 WBC 13.3 H RBC 4.84 Hgb 15.1 Hct 43.9 MCV 90.7 MCH 31.2 MCHC 34.4 RDW 13.2 Plt Count 276 MPV 9.6 Immature Gran % (Auto) 0.3 Neut % (Auto) 77.1 H Lymph % (Auto) 12.3 L [place] % (Auto) 9.0 Eos % (Auto) 1.0 Baso % (Auto) 0.3 Lymph # (Auto) 1.6 [place] # (Auto) 1.2 Eos # (Auto) 0.1 Baso # (Auto) 0.0 Abs Immat Gran (auto) 0.04 H Absolute Neuts (auto) 10.3 H Absolute Nucleated RBC 0.000 Nucleated RBC % (auto) 0.0 Sodium 138 Potassium 3.7 Chloride 99 Carbon Dioxide 25 Anion Gap 18 BUN 8 L Creatinine 0.84 Estim Creat Clear Calc 129.2 Estimated GFR > 60 Random Glucose 184 H Calcium 9.4 Total Bilirubin 0.8 Direct Bilirubin 0.3 AST 17 ALT 25 Alkaline Phosphatase 67 Total Protein 7.6 Albumin 4.2 Lipase 12 Urine Color Yellow Urine Appearance Clear Urine pH 5.5 Ur Specific [place] 1.020 Urine Protein Negative Urine Glucose (UA) 100 H Urine Ketones Negative Urine Blood Negative Urine Nitrite Negative Ur Leukocyte Esterase Negative Airway Mallampati Class: III TM Dist: >3cm Neck ROM: Full Loose/Missing/Broken Teeth: No (Denies broken, loose, missing teeth) Heart: RRR ?murmur Lungs: CTAB Assessment and Plan Assessment Anesthesia Assessment: Anesthesia Plan Discussed and Chart Reviewed Final Anesthetic Review Family History of Problems with Anesthesia: No History of Problems with Anesthesia: No NPO: Yes ASA Class: III Final Preanesthetic Review: No Changes in Pt Med Stat, Meds/Allgs Chart Reviewed, Consent Obtained/Reviewed and Anes Risks/Benef Reviewed Patient Risk: Intermediate Procedure Risk: Intermediate Assessment/Block/Sedation in SS: Assess/Block/Sedation-SS Anesthetic Plan Anesthetic Plan: GA Disposition: Standard PACU
[2023-05-23 12:03] LABS: Glucose, Whole Blood 114 mg/dL (60-115)
--- NOTE | 2023-05-23 12:57 | W.PM.OPN ---
Operative Note Operative Note Date of Service: 05/23/23 Narrative: Preoperative diagnosis: Acute appendicitis Postoperative diagnosis: Same Procedure: Laparoscopic appendectomy Surgeon: Jorge Medellin MD Press Operator:none Anesthesia: General endotracheal Indications for procedure: 42-year-old male patient presenting with 10/10 abdominal pain in the right quadrants found to have an elevated WBC and CT findings suggestive of acute appendicitis. Operative findings: Minimally inflamed appendix Specimen: Appendix Estimated blood loss: 2 mL Complications: none Procedure details: Patient was brought to the OR and placed in a supine position. After administering general anesthesia the patient's abdomen was prepped with ChloraPrep and draped in a sterile fashion. A surgical time-out was called and consent confirmed. Patient received preoperative antibiotics and Venodyne boots were in place. Local anesthesia consisting of 0.5% Sensorcaine without epinephrine was infiltrated in periumbilical region. A 5 mm incision was made below the umbilicus and carried down through subcutaneous tissue. A Veress needle was then inserted while elevating abdominal cavity with towel clips. After a positive drop test the abdomen was insufflated to a pressure of 15 mm of mercury. The Veress needle was removed and a 5 mm trocar inserted. The camera was then inserted in the abdomen explored. A 2nd 5 mm trocars placed in the lower midline. A 12 mm trocar was then placed in the left lower quadrant. The patient was then placed in a Trendelenburg position and rotated to the left. The appendix was identified in the right lower quadrant and brought up using blunt dissecting clamps. The mesentery of the appendix was then divided using the LigaSure. The appendiceal artery was cauterized and divided using the LigaSure. Dissection was continued down to the base of the cecum. An Endo-JAROCHO stapler with a purple reload was then used to divide the appendix at the base with the cecum. The appendix was then placed in Endo-Catch bag and brought out through the left lower quadrant incision. The abdomen was then irrigated with saline solution and suctioned dry. Wounds were checked for hemostasis. CO2 was then evacuated from the abdominal cavity and all trocars removed. Fascia was closed in the left lower quadrant incision using a [id number] 0 Polysorb suture. Skin was closed at all incisions using a subcuticular 4-0 Polysorb suture. Steri-Strips 2 x 2 gauze and Tegaderm were then applied. The patient tolerated the procedure well. Sponge, instrument, needle counts reported as correct. The patient was transferred to PACU in stable condition.
== END 2023-05-23 15:02 | disposition home or self-care (01) ==
LOC: HO.ED 10:41 → HO.SSS 10:44
PROVIDERS: Surgery; Emergency Provider Student in an Organized Health Care Education/Training Program; PCP Nurse Practitioner Family; Visit Provider Emergency Medicine
PROC: 0DTJ4ZZ Resection of Appendix, Percutaneous Endoscopic Approach (ICD-10-PCS; CPT 44970; principal; 2023-05-23 11:30)
DX: K35.30 Acute appendicitis with localized peritonitis, without perforation or gangrene (principal); E11.9 Type 2 diabetes mellitus without complications; I10 Essential (primary) hypertension; E78.5 Hyperlipidemia, unspecified; F12.90 Cannabis use, unspecified, uncomplicated; Z79.899 Other long term (current) drug therapy; Z79.02 Long term (current) use of antithrombotics/antiplatelets; Z79.84 Long term (current) use of oral hypoglycemic drugs
CPT/HCPCS: 44970; 36415; 74176; 76705; 80048; 80076; 81003; 82947; 83690; 85025; 88304; 96361; 96374; 99285; J0131; J0665; J1885; J2405; J2704; J3010

== ENCOUNTER → 2023-05-23 05:44 | Outpatient (BNV) | payer OTHER, SELFPAY | PROVIDERS: Emergency Provider Student in an Organized Health Care Education/Training Program; PCP Nurse Practitioner Family; Visit Provider Surgery | DX: K35.30 Acute appendicitis with localized peritonitis, without perforation or gangrene (principal) | CPT/HCPCS: 44970; 99283 ==

== ENCOUNTER 2023-06-17 06:12 | Outpatient (REF) | payer OTHER, SELFPAY | END 2023-06-17 06:13 | disposition home or self-care (01) | LOC: HO.LAB 06:12 | PROVIDERS: PCP Internal Medicine; Visit Provider Nurse Practitioner Family | DX: R79.89 Other specified abnormal findings of blood chemistry (principal) | CPT/HCPCS: 36415; 84443 ==

== ENCOUNTER 2023-07-01 07:59 | Outpatient (REF) | payer OTHER, SELFPAY ==
--- NOTE | ~2023-07-01 | MR_ITS ---
EXAMINATION: MRI OF THE BRAIN WITHOUT IV CONTRAST INDICATION: Syncope and collapse. COMPARISON: CT head on 02/13/2022. TECHNIQUE: Multiplanar multisequence MR imaging of the brain was obtained without IV contrast. FINDINGS: No acute intracranial hemorrhage or infarct. Few scattered periventricular white matter T2/FLAIR hyperintensities, nonspecific however commonly seen with small vessel ischemic disease. There is diffuse dilation of the supratentorial ventricles, out of proportion to widening of the sulci. No midline shift or hydrocephalus. No acute extra-axial fluid collections. The osseous structures are unremarkable. There is an ill-defined T1 and T2 predominantly isointense (to dickson matter) lesion in the region of the pineal gland, which demonstrates restricted diffusion and foci of susceptibility artifact corresponding to dystrophic calcifications on comparison CT. No significant regional mass effect. No aqueductal stenosis. Differential considerations include enlarged pineal gland, pineal region meningioma and pineocytoma among others. The pituitary gland and remaining midline structures are unremarkable. No orbital pathology. Mild mucosal thickening of the paranasal sinuses. The mastoid air cells are clear. MR/MR head/brain wo con IMPRESSION: -No acute intracranial abnormality. -Diffuse dilation of the supratentorial ventricles, out of proportion to widening of the sulci. Correlate clinically to exclude normal pressure hydrocephalus.
== END 2023-07-01 08:00 | disposition home or self-care (01) ==
LOC: HO.MRI 07:59
PROVIDERS: PCP Internal Medicine; Visit Provider Psychiatry & Neurology Neurology
DX: R55 Syncope and collapse (principal); R93.0 Abnormal findings on diagnostic imaging of skull and head, not elsewhere classified
CPT/HCPCS: 70551

== ENCOUNTER → 2023-07-13 08:54 | Outpatient (REF) | payer OTHER, SELFPAY | LOC: HO.SL 08:54 | PROVIDERS: PCP Internal Medicine; Visit Provider Psychiatry & Neurology Neurology | DX: R06.83 Snoring (principal); G47.10 Hypersomnia, unspecified; G47.33 Obstructive sleep apnea (adult) (pediatric) | CPT/HCPCS: 95806 ==

== ENCOUNTER → 2023-07-13 09:04 | Outpatient (BNV) | payer OTHER, SELFPAY | PROVIDERS: PCP Internal Medicine; Visit Provider Psychiatry & Neurology Neurology | DX: G47.33 Obstructive sleep apnea (adult) (pediatric) (principal) | CPT/HCPCS: 95806 ==

== ENCOUNTER 2023-07-20 08:25 | Outpatient (AMB) | payer OTHER, SELFPAY ==
--- NOTE | 2023-07-20 08:33 | MHC.OFFVIS ---
Intake Vital Signs 07/20/23 08:39 Height 5 ft 8 in Weight 223 lb 8 oz BMI 34.0 BP 142/86 H Blood Pressure Location Lt brachial Position Sitting Pulse 75 Pulse Source Pulse Oximeter Pulse Oximetry (%) 97 Oxygen Delivery Method Room Air Intake Visit Reasons: 2 mo f/u Bilateral Ventrical - CONF Intake Note: Patient presents for 2 month f/u wants to know sleep results Allergies pravastatin Adverse Reaction (Severe, Verified 07/20/23 08:38) Diarrhea HPI HPI Comments History of Present Illness Details 42 y/o male comes for follow up of sleep study and syncope episode. 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 The home sleep study result was significant for a severe degree of sleep apnea. The AHI was 34/hr and oxygen harry was 71%. Pt reports no more syncope episode since last year. Pt had 2 episodes of loss of consciousness last year. The first episode was when he went to [employer], his was driving. He felt dizzy and passed out when he got out of the car. He remembers feeling tired. He was taken to [place] [facility]- he was mildly lethargic but was oriented. His blood sugars were high in 250s. He did not have health insurance at that time and his diabetes was not controlled. He was seen by cardiology. Early this year he had another episode of syncope. He felt dizzy, he was driving but did not feel well, asked his son to drive, he had vomited and passed out when he moves to passenger seat. Both these episodes he describes a s spinning sensation. No headaches or tinnitus. No seizure like activity. His diabetes was still not controlled at that time He had a CT head which showed disproportionately enlarged ventricles. EEG not done yet. [facility] Medical History (Updated 07/21/23 @ 11:31 by Russel Kaminski CNP) Hydrocephalus Pineal gland, tumor HTN (hypertension) Appendicitis, acute Abdominal pain Abnormal head CT Hypersomnia Snoring Hypercholesteremia Type 2 diabetes mellitus Syncope Surgical History History of vasectomy H/O hernia repair Family History Mother Diabetes Father No problems noted. Maternal Aunt Breast cancer Social History Household Members: Spouse Housing: Apartment Do you presently have visiting nurse or other home services: No Alcohol intake: current Alcohol intake frequency: holidays/special occasions only Alcohol type: beer Patient Tobacco Use Status: Never used Tobacco e-Cigarette/Vaping Use: Never Used Second Hand Smoke Exposure: No Substance Use Type: Marijuana service: No Current occupational status: employed Current occupational exposures/hazards: No Cognitive needs: No Hearing needs: No Vision needs: No Review of Systems Const All systems reviewed & are unremarkable except as noted in HPI and below Physical Exam Vital Signs: Last Vital Signs Pulse 75 07/20/23 08:39 BP 142/86 H 07/20/23 08:39 Pulse Ox 97 07/20/23 08:39 Oxygen Delivery Method Room Air 07/20/23 08:39 BMI result Body Mass Index 34.0 Const General: cooperative, healthy appearing, comfortable and no acute distress Nutritional Appearance: overweight Orientation/consciousness: patient oriented x3 Eyes Pupils: Equal, round and reactive pupils present Neck Neck: Yes no meningeal signs Neuro General: patient oriented x3, tone normal, moves all extremities, no meningeal signs and no focal motor deficits Cranial nerves: Yes Facial sensation intact/muscles of mastication intact, Yes Equal, round and reactive pupils present, Yes Bilaterally intact EOM present, Yes Nystagmus not present, Yes Normal facial strength present and Yes Symmetric palate elevation present Cognition (Neuro): normal cognition Gait exam (Neuro): Normal gait present Motor exam (neuro): 5/5 motor strength present throughout Deep tendon reflexes (DTR's): Right triceps reflex intensity grade: 1+, Left triceps reflex intensity grade: 1+, Rt Biceps (C5, C6): 1+, Left biceps reflex intensity grade: 1+, Right brachioradialis reflex intensity grade: 1+ and Left brachioradialis reflex intensity grade: 1+ Coordination: [id number] test normal Assessment & Plan Assessment & Plan (1) Syncope: Comment: ? preceded by vertigo ? Code(s): R55 - Syncope and collapse Plan: EEG MRI brain (2) Abnormal head CT: Comment: shows disproportionate enlargement of ventricles FH/o epilepsy Code(s): R93.0 - Abnormal findings on diagnostic imaging of skull and head, not elsewhere classified Plan: MRI brain to evaluate (3) KANDY (obstructive sleep apnea): Comment: Severe degree of sleep apnea. The AHI was 34/hr and oxygen harry was 71%. Code(s): G47.33 - Obstructive sleep apnea (adult) (pediatric) Plan Advised patient to undergo in lab titration study to find optimal CPAP pressure to treat the severe degree of sleep apnea. Continue to manage blood sugar well. Wt reduction advised. Coding Level of Care Code Est Pt Level 3 (80301) Diagnoses Syncope R[address] R93.0 KANDY (obstructive sleep apnea) G47.33
[2023-07-20 08:39] VITALS: BP 142/86; PULSE 75; O2SAT 97; BMI 34.0
== END 2023-07-20 09:04 | disposition home or self-care (01) ==
PROVIDERS: PCP Nurse Practitioner Family; Visit Provider Nurse Practitioner Family
DX: R55 Syncope and collapse (principal); R93.0 Abnormal findings on diagnostic imaging of skull and head, not elsewhere classified; G47.33 Obstructive sleep apnea (adult) (pediatric)
CPT/HCPCS: 99213

== ENCOUNTER → 2023-07-20 08:25 | Outpatient (BNVA) | payer OTHER, SELFPAY | PROVIDERS: PCP Nurse Practitioner Family; Visit Provider Nurse Practitioner Family | DX: G47.33 Obstructive sleep apnea (adult) (pediatric) (principal); R55 Syncope and collapse; R93.0 Abnormal findings on diagnostic imaging of skull and head, not elsewhere classified | CPT/HCPCS: 99212 ==

== ENCOUNTER 2023-08-12 08:29 | Outpatient (REF) | payer OTHER, SELFPAY ==
--- NOTE | 2023-08-12 08:37 | EEG_ITS ---
FINDINGS: The waking background activity consists of low voltage fast frequencies seen anteriorly, intermixed posteriorly with a well-defined 10 hertz alpha frequency. Drowsiness is characterized with diffuse theta slowing. With photic stimulation, there are no photic driving responses. Hyperventilation was omitted. No focal, lateralizing, or paroxysmal discharges were seen. IMPRESSION: This waking EEG is within normal limits. MD JAIR Abernathy/[place] / [id number]
== END 2023-08-12 08:30 | disposition home or self-care (01) ==
LOC: HO.NEURO 08:29
PROVIDERS: PCP Nurse Practitioner Family; Visit Provider Psychiatry & Neurology Neurology
DX: R55 Syncope and collapse (principal)
CPT/HCPCS: 95816

== ENCOUNTER → 2023-08-15 20:30 | Outpatient (BNV) | payer OTHER, SELFPAY | PROVIDERS: PCP Nurse Practitioner Family; Visit Provider Psychiatry & Neurology Neurology | DX: G47.33 Obstructive sleep apnea (adult) (pediatric) (principal) | CPT/HCPCS: 95811 ==

== ENCOUNTER → 2023-08-15 20:30 | Outpatient (REF) | payer OTHER, SELFPAY | LOC: HO.SL 20:30 | PROVIDERS: PCP Nurse Practitioner Family; Visit Provider Nurse Practitioner Family | DX: G47.33 Obstructive sleep apnea (adult) (pediatric) (principal) | CPT/HCPCS: 95811 ==

== ENCOUNTER 2023-10-07 09:27 | Emergency (ER) | payer OTHER, SELFPAY ==
[2023-10-07 10:17] VITALS: BP 153/97; PULSE 82; RESP 16; TEMP 36.6; O2SAT 98; BMI 35.1
[2023-10-07 11:40] LABS: MANUAL DIFF FLAG NO
[2023-10-07 11:45] LABS: Basophils Percent Auto 0.3 % (0-2); Eosinophils Absolute Auto 0.1 X10*3/uL (0.0-0.4); Eosinophils Percent Auto 0.9 % (0-4); Hematocrit 43.3 % (42.0-52.0); Hemoglobin 15.1 g/dl (14.0-18.0); Imm Gran Abs Auto 0.04 X10*3/uL (0.00-0.03); Imm Gran Pct Auto 0.5 % (0.0-0.4); Lymphocytes Absolute Auto 1.9 X10*3/uL (1.2-4.9); Lymphocytes Percent Auto 21.8 % (20-40); Mean Corpuscular HGB Conc 34.9 g/dl (31.0-36.0); Mean Corpuscular Hemoglobin 31.1 pg (27.0-33.0); Mean Corpuscular Volume 89.3 fL (80.0-98.0); Mean Platelet Volume 9.3 fL (9.4-12.4); Monocytes Absolute Auto 0.7 X10*3/uL (0.1-1.2); Monocytes Percent Auto 7.7 % (2-11); Neutrophils Absolute Auto 5.9 x10*3/uL (2.0-8.3); Neutrophils Percent Auto 68.8 % (45-73); Platelet Count 339 X10*3/uL (160-400); Red Blood Count 4.85 X10*6/uL (4.60-5.80); Red Cell Distribution Width 13.4 % (11.0-16.0); White Blood Count 8.6 X10*3/uL (4.8-10.8)
[2023-10-07 12:08] LABS: Alanine Aminotransferase 24 U/L (0-40); Albumin Level 4.3 g/dL (3.5-5.0); Alkaline Phosphatase 62 U/L (39-117); Anion Gap 11 (12-20); Aspartate Amino Transferase 14 U/L (5-37); Bilirubin Total 0.5 mg/dL (0.0-1.0); Blood Urea Nitrogen 10 mg/dL (9-16); Calcium 9.6 mg/dL (8.4-10.2); Carbon Dioxide 29 mmol/L (22-29); Chloride 105 mmol/L (96-108); Creatinine Clr Calc Pharmacy 139.8; Estimated Glomerular Filt Rate > 60; Glucose Random 150 mg/dL (60-115); Potassium 4.6 mmol/L (3.3-5.1); Sodium 140 mmol/L (135-145); Total Protein 8.1 g/dL (6.5-8.0)
[2023-10-07 12:26] LABS: Influenza A PCR NEGATIVE (Negative); Influenza B PCR NEGATIVE (Negative); Resp Syncy Virus RNA Qual PCR NEGATIVE (Negative); SARS COV2 PCR INHOUSE NEGATIVE (Negative)
--- NOTE | 2023-10-07 12:53 | ED.GENADULT ---
HPI - General Adult General Chief complaint: Ear Problems Stated complaint: whistle in his ear for 1 week Time Seen by Provider: 10/07/23 12:00 Source: patient Mode of arrival: ambulatory Limitations: no limitations History of Present Illness HPI narrative: 43 yold with past medical history of diabetes, hypertension, high cholesterol, hydrocephalus male presents to the ED for Right ear pain, ringing in the ear, and sensation of fluid in his ear. patient denies any dizziness, nausea, vomiting, headache, recent swimming,, recent trauma, facial droop, paralysis of extremities, loss of vision, slurred speech, rash or trouble walking. Related Data Previous Rx's ?Medication ?Instructions ?Recorded oxycodone 5 mg tablet 5 mg PO Q6H PRN pain (scale score 05/23/23 7-10) #15 tabs atorvastatin 10 mg tablet 10 mg PO BEDTIME #90 tabs 05/24/23 lisinopril 5 mg tablet 5 mg PO DAILY #90 tabs 05/24/23 metformin 500 mg tablet 500 mg PO BID #90 tabs 08/31/23 amoxicillin 875 mg-potassium 1 tab PO Q12H 10 days #20 tabs 10/07/23 clavulanate 125 mg tablet naproxen 500 mg tablet 500 mg PO BID PRN pain 7 days #14 10/07/23 tabs Allergies Allergy/AdvReac Type Severity Reaction Status Date / Time pravastatin AdvReac Severe Diarrhea Verified 10/07/23 10:19 Review of Systems Review of Systems: Right ear pain, ringing in the ear, sensation of fluid in the ear Yes all other systems are reviewed and are negative [facility] Past Medical History Medical History (Updated 10/08/23 @ 00:01 by Fawad Dalton) Hydrocephalus Pineal gland, tumor HTN (hypertension) Appendicitis, acute Abdominal pain Abnormal head CT Hypersomnia Snoring Hypercholesteremia Type 2 diabetes mellitus Syncope Surgical History History of vasectomy H/O hernia repair Family History Family History Mother Diabetes Father No problems noted. Maternal Aunt Breast cancer Social History Social History Household Members: Spouse Housing: Apartment Do you presently have visiting nurse or other home services: No Alcohol intake: current Alcohol intake frequency: holidays/special occasions only Alcohol type: beer Patient Tobacco Use Status: Never used Tobacco e-Cigarette/Vaping Use: Never Used Second Hand Smoke Exposure: No Substance Use Type: Marijuana Advance Directives: No Advance Directives Information Provided: No service: No Current occupational status: employed Current occupational exposures/hazards: No Cognitive needs: No Hearing needs: No Vision needs: No Physical Exam ED Vital Signs: Vital Signs - 24 hr 10/07/23 10:17 Temperature 97.9 F Pulse Rate 82 Respiratory Rate 16 Blood Pressure 153/97 H Pulse Oximetry 98 Oxygen Delivery Method Room Air BMI result Body Mass Index 35.1 Const General: cooperative, healthy appearing, comfortable, no acute distress, well developed, alert, awake and Physically active Orientation/consciousness: oriented to person, oriented to place, oriented to time and patient oriented x3 HENMT Head: Yes normal to inspection, Yes No palpable skull fracture present, Yes normocephalic, Yes atraumatic and No abrasion Ears: hearing grossly normal bilaterally, external ears normal, TM normal on the left, EAC's normal, mastoids normal, no periauricular adenopathy and TM abnormal erythematous on the right Throat: Yes posterior oropharynx normal, Yes tonsils normal and Yes uvula midline Eyes General: appearance normal, both eyes and all related structures Neck Neck: Yes normal visual inspection, Yes full ROM, Yes no lymphadenopathy, Yes no meningeal signs, Yes trachea midline, Yes supple, No anterior neck swelling and No tender Chest Chest palpation & inspection: normal inspection of the chest and normal palpation of entire chest wall Resp Effort & Inspection: normal respiratory effort and able to speak in complete sentences Auscultation: clear to auscultation bilaterally Cardio Jugular venous distension: no JVD Heart sounds: S1 normal heart sound present and S2 normal heart sound present GI Inspection: Yes normal to inspection Palpation (GI): Soft to palpation, not firm, nontender, no guarding and not rigid General: Yes no CVA tenderness Back/Spine/Pelvis Back: no CVA tenderness and No back tenderness Skin General skin exam: no rashes or lesions noted, elasticity normal and turgor normal Neuro General: oriented to person, oriented to place, oriented to time, patient oriented x3, gait normal, tone normal, moves all extremities, Normal light touch and pain sensation, no meningeal signs, no focal motor deficits, CN's II-XI intact bilaterally and normal sensation to monofilament Extrem General: Yes normal to inspection, Yes full ROM and Yes capillary refill normal Psych Appearance: grossly normal, well kempt and not disheveled Medical Decision Making Medical Decision Making [facility] Narrative: 43-year-old male presents ED for right ear pain, ringing in the ear, and sensation of fluid in the right ear. patient has no recent trauma, nausea, vomiting, dizziness, or headache trouble walking. Exam indicate otitis media. Patient explained he may also have middle ear effusion and tendinitis. Patient explained worrisome signs informed to return to the ED for has them. Not suspect mastoiditis, osteomyelitis, stroke, Hoff's palsy, Omar Meade syndrome, or brain bleed. NIH Score 0. Differential Diagnosis Differential Diagnoses: The differential diagnosis associated with the presentation includes ( tendonitis, vertigo, otitis media) Admission/Observation Consideration of admission/observation: Escalation of care including admission/observation considered Lab Data [facility] Lab Attestation statement: I reviewed the patient's lab results. 10/07/23 11:36 10/07/23 11:36 Labs: Lab Results 10/07/23 Range/Units 11:36 WBC 8.6 (4.8-10.8) X10*3/uL RBC 4.85 (4.60-5.80) X10*6/uL Hgb 15.1 (14.0-18.0) g/dl Hct 43.3 (42.0-52.0) % MCV 89.3 (80.0-98.0) fL MCH 31.1 (27.0-33.0) pg MCHC 34.9 (31.0-36.0) g/dl RDW 13.4 (11.0-16.0) % Plt Count 339 (160-400) X10*3/uL MPV 9.3 L (9.4-12.4) fL Immature Gran % (Auto) 0.5 H (0.0-0.4) % Neut % (Auto) 68.8 (45-73) % Lymph % (Auto) 21.8 (20-40) % Roane % (Auto) 7.7 (2-11) % Eos % (Auto) 0.9 (0-4) % Baso % (Auto) 0.3 (0-2) % Lymph # (Auto) 1.9 (1.2-4.9) X10*3/uL Roane # (Auto) 0.7 (0.1-1.2) X10*3/uL Eos # (Auto) 0.1 (0.0-0.4) X10*3/uL Baso # (Auto) 0.0 (0.0-0.2) X10*3/uL Abs Immat Gran (auto) 0.04 H (0.00-0.03) X10*3/uL Absolute Neuts (auto) 5.9 (2.0-8.3) x10*3/uL Absolute Nucleated RBC 0.000 (0.0-0.012) X10*3/uL Nucleated RBC % (auto) 0.0 (0.0-0.2) /100WBC Sodium 140 (135-145) mmol/L Potassium 4.6 (3.3-5.1) mmol/L Chloride 105 (96-108) mmol/L Carbon Dioxide 29 (22-29) mmol/L Anion Gap 11 L (12-20) BUN 10 (9-16) mg/dL Creatinine 0.79 (0.5-1.4) mg/dL Estim Creat Clear Calc 139.8 Estimated GFR > 60 Random Glucose 150 H (60-115) mg/dL Calcium 9.6 (8.4-10.2) mg/dL Total Bilirubin 0.5 (0.0-1.0) mg/dL AST 14 (5-37) U/L ALT 24 (0-40) U/L Alkaline Phosphatase 62 (39-117) U/L Total Protein 8.1 H (6.5-8.0) g/dL Albumin 4.3 (3.5-5.0) g/dL Influenza Type A (PCR) NEGATIVE (Negative) Influenza Type B (PCR) NEGATIVE (Negative) RSV RNA Qual (PCR) NEGATIVE (Negative) SARS-CoV-2 RNA (RT-PCR) NEGATIVE (Negative) Independent Historian Clinical information obtained from an independent historian. History obtained from or confirmed by: Other ( patient) External Record Review External record reviewed: Other ( prior visits) Prescription Management I considered prescription management with: Pain Medication and Antibiotic Discharge Plan Discharge Clinical Impression: Tinnitus, Otitis media Patient Disposition: Home, Self-Care Instructions: Ear Infection (ED), Tinnitus (ED) Additional Instructions: you need to follow-up with the wearing apparel assembler and primary care provider. You need to be evaluated for tinnitus. Physical exam indicate infection. You may also have middle ear effusion. Once again follow-up with ENT recommended. Return to the ED for any dizziness, headache, nausea, vomiting, discharge from the ear, fever, chills, loss of hearing, worsening ringing of the ear, worsening ear pain, or any other concerning symptoms. Prescriptions: New amoxicillin-pot clavulanate 875-125 mg tablet 1 tab PO Q12H 10 Days Qty: 20 0RF naproxen 500 mg tablet 500 mg PO BID PRN (Reason: pain) 7 Days Qty: 14 0RF No Action atorvastatin 10 mg tablet 10 mg PO BEDTIME Qty: 90 1RF lisinopril 5 mg tablet 5 mg PO DAILY Qty: 90 1RF metformin 500 mg tablet 500 mg PO BID Qty: 90 3RF Rx Instructions: Take 1,000mg in the morning and 500mg in pm oxycodone 5 mg tablet 5 mg PO Q6H PRN (Reason: pain (scale score 7-10)) Qty: 15 0RF Rx Instructions: Partial Fill upon patient request. Referrals: Newton Pace [Physician] - (RIght ear pain. ringing in the right ear. possible middle effussion) Interventions: ED Discharge Assessment Last Done: 10/07/23 13:10 Discharge Date/Time: 10/07/23 13:10 Print Language: Citizen Of [place]
[2023-10-07 13:10] VITALS: BP 153/97; PULSE 82; RESP 16; TEMP 36.6; O2SAT 98
--- NOTE | 2023-10-07 13:15 | PC.NURSE ---
pt cleared for discharge, discharge instructions reviewed with pt using staff medical billing associate. no complaints at the time of discharge.
== END 2023-10-07 13:10 | disposition home or self-care (01) ==
PROVIDERS: Physician Assistant Medical; Emergency Provider Student in an Organized Health Care Education/Training Program
DX: H93.11 Tinnitus, right ear (principal); H66.91 Otitis media, unspecified, right ear; H92.01 Otalgia, right ear; E11.9 Type 2 diabetes mellitus without complications; I10 Essential (primary) hypertension; E78.00 Pure hypercholesterolemia, unspecified; Z11.52 Encounter for screening for COVID-19; Z20.828 Contact with and (suspected) exposure to other viral communicable diseases; Z79.02 Long term (current) use of antithrombotics/antiplatelets; Z79.84 Long term (current) use of oral hypoglycemic drugs; Z79.899 Other long term (current) drug therapy
CPT/HCPCS: 0241U; 36415; 80053; 85025; 99282; 99283

== ENCOUNTER 2024-04-25 14:03 | Outpatient (AMB) | payer MEDICAID, SELFPAY ==
--- NOTE | 2024-04-25 14:14 | MHC.OFFVIS ---
Vital Signs 04/25/24 14:16 Height 5 ft 8 in Weight 230 lb BMI 35.0 Intake Visit Reasons: Sleep apnea F/U Intake Note: Abnormal MRI enlarged ventricles Allergies pravastatin Adverse Reaction (Severe, Verified 04/25/24 14:15) Diarrhea HPI Comments Details: 43 year old male with HTN/ Syncope and T2DM presents for follow up of sleep apnea. He feels claustrophobic with the CPAP so he has not been using it. Denies nocturia, urinary incontinence, balance or gait changes. Denies memory difficulties, waking up groggy, sluggishness and brain fog. MME is 27 today. Sleep is good, goes to bed at midnight, doesn't wake up until 6am. Fatigue but that is normal, doesn't nap during the day. His mood is stable. Denies headaches, vision changes, hearing sounds or hallucinations. Denies sensitivity to light, noise, smells. 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 Takes his BP medications on time. [facility] Medical History Hydrocephalus Pineal gland, tumor HTN (hypertension) Appendicitis, acute Abdominal pain Abnormal head CT Hypersomnia Snoring Hypercholesteremia Type 2 diabetes mellitus Syncope Surgical History History of vasectomy H/O hernia repair Family History Mother Diabetes Father No problems noted. Maternal Aunt Breast cancer Social History Household Members: Spouse Housing: Apartment Do you presently have visiting nurse or other home services: No Alcohol intake: current Alcohol intake frequency: holidays/special occasions only Alcohol type: beer Patient Tobacco Use Status: Never used Tobacco e-Cigarette/Vaping Use: Never Used Second Hand Smoke Exposure: No Substance Use Type: Marijuana service: No Current occupational status: employed Current occupational exposures/hazards: No Cognitive needs: No Hearing needs: No Vision needs: No Review of Systems ENT Reports Normal hearing present Neuro Reports Normal hearing present Physical Exam Vital Signs: BMI result Body Mass Index 35.0 Const Other: Chadian speaking male his son is with him. General: cooperative, comfortable and no acute distress Nutritional Appearance: obese Orientation/consciousness: patient oriented x3 HEENT Head: Yes normal to inspection Face and sinus: Yes normal facial exam and Yes face symmetric Mouth: tongue normal Eyes General: appearance normal, both eyes and all related structures Pupils: Equal, round and reactive pupils present, Pupils normal by confrontation and Pupil accommodation reflex normal Resp Effort & Inspection: normal respiratory effort and able to speak in complete sentences Neuro General: patient oriented x3 Cranial nerves: Yes Equal, round and reactive pupils present, Yes Normal accommodation reflex present, Yes Normal facial strength present, Yes Midline tongue present, Yes Symmetric palate elevation present, Yes Normal hearing present, Yes Ability to bilaterally rotate head present and Yes Ability to bilaterally elevate shoulders present Gait exam (Neuro): Normal gait present Motor exam (neuro): 5/5 motor strength present throughout and Normal motor muscle tone present throughout Deep tendon reflexes (DTR's): Right triceps reflex intensity grade: 2+, Left triceps reflex intensity grade: 2+, Rt Biceps (C5, C6): 2+, Right brachioradialis reflex intensity grade: 2+, Left brachioradialis reflex intensity grade: 2+, Right patellar reflex intensity grade: 2+ and Left patellar reflex intensity grade: 2+ Coordination: [id number] test normal Orientation What is the (year) (season) (date) (day) (month)?: year, season (prompted), date, day and month Where are we (state) (county) (town or city) (hospital) (floor)?: state, county, town or city, hospital/clinic and floor Registration Name of 3 unrelated objects clearly and slowly, then ask patient to repeat all 3 of them. (1st repeat determines score. Make sure they can repeat all three): object 1, object 2 and object 3 Attention & Calculation (CHOOSE ONE) Spell WORLD backwards (DLROW): 4 letters Recall Ask patient to repeat the 3 items from question #3.: object 1, object 2 and object 3 Language Show patient a wristwatch & ask what it is. Repeat for pencil.: watch and pencil Ask the patient to repeat the phrase 'No ifs, ands, or buts' after you.: incorrect Ask the patient to 'take a piece of paper with their right hand' 'fold paper in half' 'place paper on floor': take paper in right hand, fold paper in half and place paper on floor Print the sentence 'CLOSE YOUR EYES' on a piece. If patient actually closes eyes then score.: followed written direction Give patient a blank piece of paper & ask to write a sentence. Score if it contains a noun & verb.: sentence contains subject and verb Score Score: 27 Assessment & Plan Assessment & Plan (1) KANDY (obstructive sleep apnea): Comment: Severe degree of sleep apnea. The AHI was 34/hr and oxygen harry was 71%. Code(s): G47.33 - Obstructive sleep apnea (adult) (pediatric) Category: Medical Plan: Will send him for a mask fitting as patient is non-compliant due to lack of education on proper use and technique, and has severe sleep apnea. Patient education of normal pressure hydrocephalus, if family members notice, sleep, mood memory, cognitive changes, in behavior, follow up with the clinic. (2) Hydrocephalus: Code(s): G91.9 - Hydrocephalus, unspecified Category: Medical Qualifiers: Hydrocephalus type: unspecified Qualified Code(s): G91.9 - Hydrocephalus, unspecified (3) Pineal gland, tumor: Comment: asymptomatic Code(s): D49.7 - Neoplasm of unspecified behavior of endocrine glands and other parts of nervous system Category: Medical Plan Will send him for a mask fitting as patient is non-compliant due to lack of education on proper use and technique, and has severe sleep apnea. Patient education of normal pressure hydrocephalus, if family members notice, sleep, mood memory, cognitive changes, in behavior, follow up with the clinic. F/u MRI in 1 year to monitor pineal gland tumour and hydrocephalus Coding Level of Care Code Est Pt Level 4 (11556) Complex EM visit Add On G2211 Diagnoses KANDY (obstructive sleep apnea) G47.33 Hydrocephalus, unspecified type G91.9 Hydrocephalus type: unspecified Pineal gland, tumor D49.7
[2024-04-25 14:16] VITALS: BMI 35.0
== END 2024-04-25 15:04 | disposition home or self-care (01) ==
PROVIDERS: PCP Nurse Practitioner Family; Visit Provider Psychiatry & Neurology Neurology
DX: G47.33 Obstructive sleep apnea (adult) (pediatric) (principal); G91.9 Hydrocephalus, unspecified; D49.7 Neoplasm of unspecified behavior of endocrine glands and other parts of nervous system
CPT/HCPCS: 99214

== ENCOUNTER → 2024-04-25 14:03 | Outpatient (BNVA) | payer MEDICAID, SELFPAY | PROVIDERS: PCP Nurse Practitioner Family; Visit Provider Psychiatry & Neurology Neurology | DX: G47.33 Obstructive sleep apnea (adult) (pediatric) (principal); I10 Essential (primary) hypertension; E11.9 Type 2 diabetes mellitus without complications; G91.9 Hydrocephalus, unspecified; D49.7 Neoplasm of unspecified behavior of endocrine glands and other parts of nervous system | CPT/HCPCS: 99212 ==

== ENCOUNTER 2024-08-03 12:36 | Outpatient (AMB) | payer MEDICAID, SELFPAY ==
[2024-08-03 12:45] VITALS: BP 144/102; PULSE 74; TEMP 36.3; O2SAT 98; BMI 35.0
--- NOTE | 2024-08-03 12:45 | A.OFFPC_ITS ---
Vital Signs 08/03/24 12:45 Height 5 ft 8 in Weight 230 lb 2 oz BMI 35.0 BP 144/102 H Blood Pressure Location Lt brachial Position Sitting Pulse 74 Pulse Source Pulse Oximeter Temp 97.3 F Temp Source Temporal Artery Scan Pulse Oximetry (%) 98 Oxygen Delivery Method Room Air Intake Visit Reasons: Annual Exam Stock Layer Required: Yes Stock Layer Name: Ananya Barron PA-C Information Interpreted: non-clinical & clinical Accompanied by: Self / Same As Patient Allergies pravastatin Adverse Reaction (Severe, Verified 08/03/24 13:23) Diarrhea Medication List - Last Reconciled 08/03/24 by Ananya Barron PA-C atorvastatin 10 mg PO BEDTIME lisinopril 10 mg PO DAILY metformin 500 mg PO BID naproxen 500 mg PO BID PRN 7 days oxycodone 5 mg PO Q6H PRN Tobacco use date assessed: 08/03/24 Dental Screening Dental Screen Date: 08/03/24 Did you have a dental visit in the last 12 months?: No Did you have a dental problem in the last 6 months where you did not have access to dental care?: Yes Was dental information given to patient?: Patient has dentist [facility] Medical History Annual physical exam Obesity (BMI 30-39.9) Hydrocephalus Pineal gland, tumor HTN (hypertension) Appendicitis, acute Abdominal pain Abnormal head CT Hypersomnia Snoring Hypercholesteremia Type 2 diabetes mellitus Syncope Surgical History History of vasectomy H/O hernia repair Family History Mother Diabetes Father No problems noted. Maternal Aunt Breast cancer Social History Household Members: Spouse Housing: Apartment Do you presently have visiting nurse or other home services: No Alcohol intake: current Alcohol intake frequency: holidays/special occasions only Alcohol type: beer Patient Tobacco Use Status: Never used Tobacco e-Cigarette/Vaping Use: Never Used Second Hand Smoke Exposure: No Substance Use Type: Marijuana service: No Current occupational status: employed Current occupational exposures/hazards: No Cognitive needs: No Hearing needs: No Vision needs: No Questionnaire PHQ-9 Over the last 2 weeks, how often have you been bothered by any of the following problems? 1. Little interest or pleasure in doing things: not at all 2. Feeling down, depressed, or hopeless: not at all 3. Trouble falling or staying asleep, or sleeping too much: not at all 4. Feeling tired or having little energy: not at all 5. Poor appetite or overeating: not at all 6. Feeling bad about yourself - or that you are a failure or have let yourself or your family down: not at all 7. Trouble concentrating on things, such as reading the newspaper or watching television: not at all 8. Moving or speaking so slowly that other people could have noticed. Or the opposite - being so fidgety or restless that you have been moving around a lot more than usual: not at all 9. Thoughts that you would be better off or of hurting yourself in some way: not at all Total score: 0 Depression Screening Interpretation: Negative Depression Screening Done: Yes 32062 - PHQ-9 Billing: Yes Source: Developed by Drs. Henry Arias, Barbara Canales, Shekhar Hi and colleagues, with an educational stefanie from [employer]. Thrive Questionnaire Date Thrive assessed: 08/03/24 I am a: Patient What is your living situation today?: I have a steady place to live Within the past 12 months, did the food you bought not last and you didn't have the money to get more?: I choose not to answer this question Within the past 12 months, did you worry whether your food would run out before you got money to buy more?: Never true Do you have trouble paying for medicines?: I choose not to answer this question Do you have trouble getting transportation to medical appointments?: No Do you have trouble paying your heating and electricity bill?: No Do you have trouble taking care of your child, family member or friend?: No Do you have trouble with day-to-day activities such as bathing, preparing meals, shopping, managing finances, etc.?: No Are you currently unemployed and looking for a job?: Yes Are you interested in more education?: I choose not to answer this question Please select the resources that you would like help with: None Currently or been in a relationship where the following occur: I choose not to answer THRIVE Score: 0 AUDIT C Alcohol Use Questionnaire (AUDIT-C) 1. How often do you have a drink containing alcohol?: Never 3. How often do you have six or more drinks on one occasion?: Never Total Score: 0 Score Reviewed/Action Taken: Yes SHELLIE-7 AMB Questionnaire SHELLIE-7 Date SHELLIE - 7 assessed: 08/03/24 Feeling nervous, anxious, or on edge: 0 = Not at all Not being able to stop or control worryin = Not at all Worrying too much about different things: 0 = Not at all Trouble relaxin = Not at all Being so restless that it is hard to sit still: 0 = Not at all Becoming easily annoyed or irritable: 0 = Not at all Feeling afraid as if something awful might happen: 0 = Not at all Total SHELLIE-7 score (0-4 normal; 5-9 mild; 10-14 moderate; 15-21 severe): 0 Source: Developed by Drs. Henry Arias, Barbara Canales, Shekhar Hi and colleagues, with an educational stefanie from [employer]. SHELLIE-7 Assessment Billing SHELLIE-7 Assessment Tool: SHELLIE-7 Assessment 92644 Physical exam (Primary Care) Vital Signs: Last Vital Signs Temp 97.3 F 08/03/24 12:45 Pulse 74 08/03/24 12:45 BP 144/102 H 08/03/24 12:45 Pulse Ox 98 08/03/24 12:45 Oxygen Delivery Method Room Air 08/03/24 12:45 Care Plan Goal for BP management: 130/80 patient will be restarted on his lisinopril 10 mg daily. Patient will check his blood pressure at least 3 weekly times over the next 2 weeks and return in 2 weeks for blood pressure check with the diarrhea his blood pressures. BMI result Body Mass Index 35.0 BMI Assessment/Plan discussion: High BMI High, discussed plan: lifestyle, weight reduction, dietary, physical activity and alcohol moderation Tobacco/Smoking Status: Tobacco use Status Tobacco use date assessed 08/03/24 08/03/24 12:46 Patient Tobacco Use Status Never used Tobacco 08/03/24 13:06 e-Cigarette/Vaping Use Never Used 08/03/24 13:06 PHQ-9: PHQ-9 Score PHQ-9: Total score 0 08/03/24 13:13 Depression Screening Interpretation: Negative Thrive Assessment: Date of Thrive Assessment Date Thrive assessed 08/03/24 08/03/24 13:06 Currently or been in a relationship where the following occur: I choose not to answer Office Procedures Flu Questionnaire Does the patient have a severe egg allergy?: No Does the patient have severe life threatening allergies?: No Does the patient have a fever or illness today?: No Has the patient ever had Guillain-[place] Syndrome?: No Has the patient ever had any past reaction to a flu shot?: No Immunizations Fluarix Triv [id number] (PF) 45 mcg (15 mcg x 3)/0.5 mL IM syringe Performing Provider: Ananya Barron PA-C [facility] [place] [facility] Documented (not given) by: BRAYAN Milton on 08/03/24 13:07 Reason Not Given: Patient Refused Coding Level of Care Code Est Pt Prev Care 40-64y(95144) Diagnoses Type 2 diabetes mellitus E11.9 KANDY (obstructive sleep apnea) G47.33 Snoring R06.83 Hypertension I10 Hypercholesteremia E78.00 Obesity (BMI 30-39.9) E66.9 Annual physical exam Z00.00 Additional Codes SHELLIE-7 Assessment Billing - SHELLIE-7 Assessment Tool: SHELLIE-7 Assessment 40971 ([id number]) PHQ-9 - 04254 - PHQ-9 Billing: Yes ([id number]) Assessment & Plan Assessment & Plan (1) Type 2 diabetes mellitus: Code(s): E11.9 - Type 2 diabetes mellitus without complications Category: Medical Plan: A1c level 8.7 today. Patient will be restarted back on metformin 500 mg b.i.d.. Condition is chronic and stable continue to monitor. (2) KANDY (obstructive sleep apnea): Comment: Severe degree of sleep apnea. The AHI was 34/hr and oxygen harry was 71%. Code(s): G47.33 - Obstructive sleep apnea (adult) (pediatric) Category: Medical Plan: Condition is chronic and stable continue to monitor. (3) Snoring: Comment: loud snoring, hypersomnia. Mallampatti grade 4 Code(s): R06.83 - Snoring Category: Medical Plan: Condition is chronic and stable continue to monitor. (4) Hypertension: Code(s): I10 - Essential (primary) hypertension Category: Medical Plan: Patient will be started on lisinopril 10 mg daily with instructions to check blood pressure 3 times a week for the next 2 weeks and to bring in a blood pressure diary in the next 2 weeks at his follow-up appointment in 2 weeks. Condition is chronic and stable continue to monitor. (5) Hypercholesteremia: Code(s): E78.00 - Pure hypercholesterolemia, unspecified Category: Medical Plan: Patient will be restarted on atorvastatin 10 mg at bedtime. Goal LDL<70. Condition is chronic and stable continue to monitor. (6) Obesity (BMI 30-39.9): Code(s): E66.9 - Obesity, unspecified Category: Medical Plan: Patient to improve his diet and exercise regimen. Condition is chronic and stable continue to monitor. (7) Annual physical exam: Code(s): Z00.00 - Encounter for general adult medical examination without abnormal findings Category: Medical Plan: see above and below Plan 1. Hyperlipidemia Continue atorvastatin 10 mg. Blood tests for lipid profile monitoring are recommended for future follow-up. 2. Essential Hypertension The patient will resume lisinopril with an increased dosage to 10 mg daily due to current inadequate blood pressure control. Home blood pressure monitoring is recommended at least three times per week to assess treatment efficacy. 3. Type 2 Diabetes Mellitus Initiate metformin 500 mg BID. Goal A1C <7.0. 4. Patient will undergo fasting routine blood investigations to monitor glucose control and renal function. 5. Patient will return in 2 weeks with blood pressure diary and glucose monitoring numbers. Along with instructions to reassess blood pressure. Orders: Orders Complete Blood Count Auto Diff Today Z00.00 - Encounter for general adult medical examination without abnormal findings C Reactive Protein Today Z00.00 - Encounter for general adult medical examination without abnormal findings Liver Panel Today Z00.00 - Encounter for general adult medical examination without abnormal findings TSH reflex Free T4 Today Z00.00 - Encounter for general adult medical examination without abnormal findings Vitamin B1 Today Z00.00 - Encounter for general adult medical examination without abnormal findings Influenza [id number] Immunization Today Z23 - Encounter for immunization AMB Hemoglobin A1c Today E11.9 - Type 2 diabetes mellitus without complications Comprehensive [place]. Panel Fast Today Z00.00 - Encounter for general adult medical examination without abnormal findings Magnesium Today Z00.00 - Encounter for general adult medical examination without abnormal findings Lipid Panel Today Z00.00 - Encounter for general adult medical examination without abnormal findings Microalbumin, Random (w Creat) Today E11.9 - Type 2 diabetes mellitus without complications PSA,Total (Free>4and<10) Today Z00.00 - Encounter for general adult medical examination without abnormal findings Vitamin B12 and Folate Today Z00.00 - Encounter for general adult medical examination without abnormal findings Vitamin D 25-OH Total Today Z00.00 - Encounter for general adult medical examination without abnormal findings Referrals Podiatry Referral E11.9 - Type 2 diabetes mellitus without complications, L60.0 - Ingrowing nail Medications: Changed From lisinopril 5 mg PO DAILY 90 tabs 1RF I10 - Essential (primary) hypertension To lisinopril 10 mg PO DAILY 90 tabs 1RF I10 - Essential (primary) hypertension Refilled atorvastatin 10 mg PO BEDTIME 90 tabs 1RF E78.00 - Pure hypercholesterolemia, unspecified metformin Take 1,000mg in the morning and 500mg in pm 500 mg PO BID 90 tabs 1RF Patient Instructions: Patient Instructions - Reinitiate medication as prescribed: lisinopril 10 mg, metformin 500 mg, atorvastatin 10 mg. - Monitor blood pressure at home at least three times a week and record readings. - Maintain fasting from food and non-water beverages for 12 hours before scheduled lab tests. - Return in two weeks for follow-up evaluation of blood pressure and glucose control. - Adjust dietary intake to reduce sugar and cholesterol; consult with a dietitian if needed. - Notify the clinic if experiencing any new symptoms or worsening of current conditions. Scribe Plan - Not visible on output: History of Present Illness The patient is a 43-year-old male presenting for an annual physical exam to discuss his chronic medical conditions which include hypertension, diabetes and hyperlipidemia which he has been off of medications for a few months. The patient's blood pressure was reported to be high and uncontrolled in previous assessments. Today his blood pressure is 144/102. Patient denies any dizziness, chest pain, shortness of breath, fatigue, nausea or vomiting or any cardiac or neuro related complaints at this time. He was previously on lisinopril 5 mg but expressed that it has been a while since taking any medications consistently due to lack of access. Essential Hypertension remains a persistent condition for which management review is necessary. The patient also has a history of Type 2 Diabetes Mellitus, for which he was taking metformin 500 mg BID, which he also has not taken recently. The A1c level was reported as previously 10, improved to 7.0, and currently at 8.7. The patient does not regularly monitor his blood glucose at home. Concurrently, the patient has a diagnosis of hyperlipidemia for which he was taking atorvastatin 10 mg. He mentioned previous issues with cholesterol control but did not specify other interventions. No acute symptoms related to hyperlipidemia were discussed. The previous or current impacts of these issues on his lifestyle or daily function were not mentioned. Social History - The patient currently works in communications involving outdoor activities. - He relocated from [place] to the current location due to personal relationships. - The patient is not currently living with a significant other. - He has an established residence and local friendships. - Language proficiency in Persian is limited, with primary communication in Turkish. Review of Systems - Cardiovascular: Denies chest pain. - Neurological: Denies headaches or dizziness. - Genitourinary: Denies frequent urination. - Gastrointestinal: Reports normal bowel movements. - Extremities: Denies leg swelling. - Constitutional: Denies fatigue, fever, and chills. Physical Exam Appearance: Alert. Oriented X3. No acute distress. Head: Normal external exam. Normocephalic. Atraumatic. Eyes: Pupils are equal, round, and reactive to light. Extraocular movements intact. Conjunctiva and sclera normal. Eyelids normal. Ears: External auditory canal normal. Tympanic membranes normal. Throat: Pharynx normal. Uvula midline. Moist mucous membranes. Neck: Normal inspection. Neck supple. Full range of motion. No adenopathy. Thyroid Normal. No meningeal signs. No neck mass noted. Cardiovascular: Normal heart rate and rhythm. Heart sound normal. No murmurs noted. Pulses normal throughout. Respiratory: No respiratory distress. Painless inspiration. Breath sounds normal. No wheezes/rales/rhonchi noted. Chest nontender. No accessory muscle usage noted or decreased air movement noted. Abdomen: Soft and nontender. Bowel sounds normal in all 4 quadrants. No distention noted. No organomegaly noted. No visible injury noted. Back: No costovertebral angle tenderness. Full range of motion noted. Skin: Skin warm and dry. Normal skin color. Normal skin turgor. No rashes/lesions/lacerations noted. Extremities: No lower extremity edema. Extremities exhibit normal range of motion. Extremities nontender. Neuro: Oriented X 3. No motor deficit. No sensory deficit. Reflexes normal. Results - Labs: Hemoglobin A1c 8.7% Plan Patient was informed and verbally consented to the use of an ambient scribe for clinic note documentation during this visit. 1. Hyperlipidemia Continue atorvastatin 10 mg. Blood tests for lipid profile monitoring are recommended for future follow-up. 2. Essential Hypertension The patient will resume lisinopril with an increased dosage to 10 mg daily due to current inadequate blood pressure control. Home blood pressure monitoring is recommended at least three times per week to assess treatment efficacy. 3. Type 2 Diabetes Mellitus Initiate metformin 500 mg BID. Goal A1C <7.0. 4. Patient will undergo fasting routine blood investigations to monitor glucose control and renal function. 5. Patient will return in 2 weeks with blood pressure diary and glucose monitoring numbers. Along with instructions to reassess blood pressure. Discussion Notes I discussed with the patient the nature of his hypertension, Type 2 diabetes, and hyperlipidemia. The need for aggressive management of these conditions was emphasized, particularly regarding adherence to prescribed medication regimens. I highlighted potential risks of uncontrolled hypertension, including cardiovascular complications. The benefits of blood pressure monitoring and medication adherence were reviewed. I provided recommendations for diabetes management including medication restart and emphasizing the importance of lifestyle changes in his diet to aid in glycemic control. I instructed the patient on the need for fasting prior to specific lab tests which will include CBC, kidney function tests, and lipid profile. We discussed follow-up care in approximately two weeks to evaluate treatment adjustments and progress. Patient Instructions - Reinitiate medication as prescribed: lisinopril 10 mg, metformin 500 mg, atorvastatin 10 mg. - Monitor blood pressure at home at least three times a week and record re adings. - Maintain fasting from food and non-water beverages for 12 hours before scheduled lab tests. - Return in two weeks for follow-up evaluation of blood pressure and glucose control. - Adjust dietary intake to reduce sugar and cholesterol; consult with a dietitian if needed. - Notify the clinic if experiencing any new symptoms or worsening of current conditions.
== END 2024-08-03 13:22 | disposition home or self-care (01) ==
PROVIDERS: PCP Nurse Practitioner Family; Visit Provider Physician Assistant Medical
DX: Z23 Encounter for immunization (principal)

== ENCOUNTER → 2024-08-03 12:36 | Outpatient (BNVA) | payer OTHER, SELFPAY | PROVIDERS: PCP Nurse Practitioner Family; Visit Provider Physician Assistant Medical | DX: Z00.00 Encounter for general adult medical examination without abnormal findings (principal); E11.9 Type 2 diabetes mellitus without complications; G47.33 Obstructive sleep apnea (adult) (pediatric); R06.83 Snoring; E78.00 Pure hypercholesterolemia, unspecified; I10 Essential (primary) hypertension; E66.9 Obesity, unspecified | CPT/HCPCS: 90471; 96127; 99396 ==

== ENCOUNTER 2024-08-13 07:07 | Outpatient (REF) | payer OTHER, SELFPAY ==
[2024-08-13 07:24] LABS: MANUAL DIFF FLAG NO
[2024-08-13 07:48] LABS: Basophils Percent Auto 0.6 % (0-2); Eosinophils Absolute Auto 0.2 X10*3/uL (0.0-0.4); Eosinophils Percent Auto 2.2 % (0-4); Hematocrit 47.8 % (42.0-52.0); Hemoglobin 16.5 g/dl (14.0-18.0); Imm Gran Abs Auto 0.02 X10*3/uL (0.00-0.03); Imm Gran Pct Auto 0.3 % (0.0-0.4); Lymphocytes Absolute Auto 2.7 X10*3/uL (1.2-4.9); Lymphocytes Percent Auto 40.1 % (20-40); Mean Corpuscular HGB Conc 34.5 g/dl (31.0-36.0); Mean Corpuscular Hemoglobin 31.3 pg (27.0-33.0); Mean Corpuscular Volume 90.5 fL (80.0-98.0); Mean Platelet Volume 10.2 fL (9.4-12.4); Monocytes Absolute Auto 0.6 X10*3/uL (0.1-1.2); Monocytes Percent Auto 8.8 % (2-11); Neutrophils Absolute Auto 3.3 x10*3/uL (2.0-8.3); Platelet Count 248 X10*3/uL (160-400); Red Blood Count 5.28 X10*6/uL (4.60-5.80); Red Cell Distribution Width 13.5 % (11.0-16.0); White Blood Count 6.8 X10*3/uL (4.8-10.8)
[2024-08-13 08:11] LABS: Creatinine Urine 244.09 mg/dL; Microalbum/Creatinine Ratio Ur 10.2 ug/mg cr (<30)
[2024-08-13 08:23] LABS: Alanine Aminotransferase 35 U/L (0-40); Albumin Level 4.3 g/dL (3.5-5.0); Alkaline Phosphatase 55 U/L (39-117); Anion Gap 14 (12-20); Aspartate Amino Transferase 21 U/L (5-37); Bilirubin Direct 0.2 mg/dL (0.0-0.5); Bilirubin Total 0.5 mg/dL (0.0-1.0); Blood Urea Nitrogen 9 mg/dL (9-16); C Reactive Protein 0.19 mg/dL (< or = 0.50); Calcium 9.5 mg/dL (8.4-10.2); Carbon Dioxide 21 mmol/L (22-29); Chloride 107 mmol/L (96-108); Cholesterol 182 mg/dL (<200); Estimated Glomerular Filt Rate > 60; Glucose Fasting 154 mg/dL (60-99); HDL Cholesterol 40 mg/dL (>40); LDL Cholesterol Calculated 113 mg/dL (<100); Magnesium 1.7 mg/dL (1.6-2.6); Sodium 138 mmol/L (135-145); Total Protein 7.9 g/dL (6.5-8.0); Triglycerides 145 mg/dL (<150)
[2024-08-13 08:32] LABS: PSA,Total (Free>4and<10) 0.97 ng/mL (0.00-4.00)
[2024-08-13 08:45] LABS: Folate 10.6 ng/mL (> or = 4.0); Vitamin B12 1832 pg/mL (200-900)
[2024-08-13 09:17] LABS: TSH reflex Free T4 3.89 uIU/mL (0.32-4.0); Vitamin D 25-OH Total 13.1 ng/mL (>30)
[2024-08-19 10:43] LABS: Vitamin B1 16 nmol/L (8-30)
== END 2024-08-13 07:08 | disposition home or self-care (01) ==
LOC: HO.LAB 07:07
PROVIDERS: PCP Physician Assistant Medical; Visit Provider Physician Assistant Medical
DX: Z00.00 Encounter for general adult medical examination without abnormal findings (principal); E11.9 Type 2 diabetes mellitus without complications
CPT/HCPCS: 36415; 80053; 80061; 80076; 82043; 82248; 82306; 82570; 82607; 82746; 83735; 84153; 84425; 84443; 85025; 86140

== ENCOUNTER 2024-08-17 11:19 | Outpatient (AMB) | payer OTHER, SELFPAY ==
[2024-08-17 11:41] VITALS: BP 138/82; PULSE 78; RESP 16; TEMP 36.6; O2SAT 95; BMI 35.1
--- NOTE | 2024-08-17 11:41 | A.OFFPC_ITS ---
Vital Signs 08/17/24 11:41 Height 5 ft 8 in Weight 231 lb BMI 35.1 BP 138/82 Respiration 16 Pulse 78 Pulse Source Pulse Oximeter Temp 97.9 F Pulse Oximetry (%) 95 Oxygen Delivery Method Room Air Intake Visit Reasons: 2 week f/u Fly Setter Required: No Fly Setter Name: Ananya Barron PA-C Information Interpreted: non-clinical & clinical Accompanied by: Self / Same As Patient Allergies pravastatin Adverse Reaction (Severe, Verified 08/17/24 11:48) Diarrhea Medication List - Last Reconciled 08/17/24 by Ananya Barron PA-C atorvastatin 10 mg PO BEDTIME cholecalciferol (vitamin D3) 1,250 mcg PO QWEEK 3 months lisinopril 10 mg PO DAILY metformin 500 mg PO BID naproxen 500 mg PO BID PRN 7 days Tobacco use date assessed: 08/17/24 Dental Screening Dental Screen Date: 08/03/24 REPLACED BY [facility] Medical History (Updated 08/17/24 @ 12:11 by Ananya Barron PA-C) Vitamin D deficiency Elevated vitamin B12 level Annual physical exam Obesity (BMI 30-39.9) Hydrocephalus Pineal gland, tumor HTN (hypertension) Appendicitis, acute Abdominal pain Abnormal head CT Hypersomnia Snoring Hypercholesteremia Type 2 diabetes mellitus Syncope Surgical History History of vasectomy H/O hernia repair Family History Mother Diabetes Father No problems noted. Maternal Aunt Breast cancer Social History Household Members: Spouse Housing: Apartment Do you presently have visiting nurse or other home services: No Alcohol intake: current Alcohol intake frequency: holidays/special occasions only Alcohol type: beer Patient Tobacco Use Status: Never used Tobacco e-Cigarette/Vaping Use: Never Used Second Hand Smoke Exposure: No Substance Use Type: Marijuana service: No Current occupational status: employed Current occupational exposures/hazards: No Cognitive needs: No Hearing needs: No Vision needs: No Questionnaire PHQ-9 Over the last 2 weeks, how often have you been bothered by any of the following problems? 1. Little interest or pleasure in doing things: not at all 2. Feeling down, depressed, or hopeless: not at all 3. Trouble falling or staying asleep, or sleeping too much: not at all 4. Feeling tired or having little energy: not at all 5. Poor appetite or overeating: not at all 6. Feeling bad about yourself - or that you are a failure or have let yourself or your family down: not at all 7. Trouble concentrating on things, such as reading the newspaper or watching television: not at all 8. Moving or speaking so slowly that other people could have noticed. Or the opp osite - being so fidgety or restless that you have been moving around a lot more than usual: not at all 9. Thoughts that you would be better off or of hurting yourself in some way: not at all Total score: 0 Depression Screening Interpretation: Negative Depression Screening Done: Yes 01649 - PHQ-9 Billing: Yes Source: Developed by Drs. Henry Arias, Barbara Canales, Shekhar Hi and colleagues, with an educational stefanie from [employer]. Thrive Questionnaire Date Thrive assessed: 08/03/24 I am a: Patient What is your living situation today?: I have a steady place to live Within the past 12 months, did the food you bought not last and you didn't have the money to get more?: I choose not to answer this question Within the past 12 months, did you worry whether your food would run out before you got money to buy more?: Never true Do you have trouble paying for medicines?: I choose not to answer this question Do you have trouble getting transportation to medical appointments?: No Do you have trouble paying your heating and electricity bill?: No Do you have trouble taking care of your child, family member or friend?: No Do you have trouble with day-to-day activities such as bathing, preparing meals, shopping, managing finances, etc.?: No Are you currently unemployed and looking for a job?: Yes Are you interested in more education?: I choose not to answer this question Please select the resources that you would like help with: None Currently or been in a relationship where the following occur: I choose not to answer THRIVE Score: 0 AUDIT C Alcohol Use Questionnaire (AUDIT-C) 1. How often do you have a drink containing alcohol?: Monthly or less 2. How many drinks containing alcohol do you have on a typical day when you are drinking?: 1 or 2 3. How often do you have six or more drinks on one occasion?: Never Total Score: 1 Score Reviewed/Action Taken: Yes SHELLIE-7 AMB Questionnaire SHELLIE-7 Date SHELLIE - 7 assessed: 08/03/24 Feeling nervous, anxious, or on edge: 0 = Not at all Not being able to stop or control worryin = Not at all Worrying too much about different things: 0 = Not at all Trouble relaxin = Not at all Being so restless that it is hard to sit still: 0 = Not at all Becoming easily annoyed or irritable: 0 = Not at all Feeling afraid as if something awful might happen: 0 = Not at all Total SHELLIE-7 score (0-4 normal; 5-9 mild; 10-14 moderate; 15-21 severe): 0 Source: Developed by Drs. Henry Arias, Barbara Canales, Shekhar Hi and colleagues, with an educational stefanie from [employer]. SHELLIE-7 Assessment Billing SHELLIE-7 Assessment Tool: SHELLIE-7 Assessment 39416 Physical exam (Primary Care) Vital Signs: Last Vital Signs Temp 97.9 F 08/17/24 11:41 Pulse 78 08/17/24 11:41 Resp 16 08/17/24 11:41 BP 138/82 08/17/24 11:41 Pulse Ox 95 08/17/24 11:41 Oxygen Delivery Method Room Air 08/17/24 11:41 Care Plan Goal for BP management: <130/80 at goal BMI result Body Mass Index 35.1 BMI Assessment/Plan discussion: High BMI High, discussed plan: lifestyle, weight reduction, dietary, physical activity and alcohol moderation Tobacco/Smoking Status: Tobacco use Status Tobacco use date assessed 08/17/24 08/17/24 11:42 Patient Tobacco Use Status Never used Tobacco 08/17/24 11:42 e-Cigarette/Vaping Use Never Used 08/17/24 11:42 PHQ-9: PHQ-9 Score PHQ-9: Total score 0 08/17/24 11:48 Depression Screening Interpretation: Negative Thrive Assessment: Date of Thrive Assessment Date Thrive assessed 08/03/24 08/17/24 11:42 Currently or been in a relationship where the following occur: I choose not to answer Results AMB Hemoglobin A1c AMB Hemoglobin A1c 8.2 % Last Edit by JOSIANE Peguero on 08/17/24 11:56 Results Reviewed Results Reviewed: Laboratory Last Values Hgb A1c (Clinic) 8.2 % (4.0-6.0) H 08/17/24 11:55 Coding Level of Care Code Est Pt Level 4 (41236) Complex EM visit Add On G2211 Diagnoses Type 2 diabetes mellitus E11.9 Hypercholesteremia E78.00 Hypertension I10 KANDY (obstructive sleep apnea) G47.33 Obesity (BMI 30-39.9) E66.9 Snoring R06.83 Hypersomnia G47.10 Elevated vitamin B12 level R79.89 Vitamin D deficiency E55.9 Additional Codes SHELLIE-7 Assessment Billing - SHELLIE-7 Assessment Tool: SHELLIE-7 Assessment 45976 ([id number]) PHQ-9 - 54767 - PHQ-9 Billing: Yes ([id number]) Assessment & Plan Assessment & Plan (1) Type 2 diabetes mellitus: Code(s): E11.9 - Type 2 diabetes mellitus without complications Category: Medical Plan: C level 8.2 today. A1c level go less than 7.0. Patient currently on metformin 500 mg b.i.d.. Will increase to metformin 1000 mg b.i.d.. Will also add Ozempic if not improved will attempt Trulicity on Mounjaro. Patient agreeable to this. Patient checking his glucose 2 or 3 times a day if he can remember due to a busy job. Therefore will send [employer] for tighter glucose monitoring checks. Patient is return in 3 months for further evaluation and management. Condition is chronic and stable continue to monitor. (2) Hypercholesteremia: Code(s): E78.00 - Pure hypercholesterolemia, unspecified Category: Medical Plan: Patient currently on atorvastatin 10 mg at bedtime. Goal LDL< 70. Will increase atorvastatin to 20 mg at bedtime. Condition is chronic and stable continue to monitor. (3) Hypertension: Code(s): I10 - Essential (primary) hypertension Category: Medical Plan: Goal <130/70. Blood pressure at goal today. Patient to continue lisinopril 10 mg daily. Condition is chronic and stable continue to monitor. (4) KANDY (obstructive sleep apnea): Comment: Severe degree of sleep apnea. The AHI was 34/hr and oxygen harry was 71%. Code(s): G47.33 - Obstructive sleep apnea (adult) (pediatric) Category: Medical Plan: Condition is chronic and stable continue to monitor. (5) Obesity (BMI 30-39.9): Code(s): E66.9 - Obesity, unspecified Category: Medical Plan: Will attempt to send Ozempic if not improved will send Mounjaro or Trulicity. Patient will also improve his diet and exercise regimen. Condition is chronic and stable continue to monitor. (6) Snoring: Comment: loud snoring, hypersomnia. Mallampatti grade 4 Code(s): R06.83 - Snoring Category: Medical Plan: Condition is chronic and stable continue to monitor. (7) Hypersomnia: Code(s): G47.10 - Hypersomnia, unspecified Category: Medical Plan: Condition is chronic and stable will continue to monitor. (8) Elevated vitamin B12 level: Code(s): R79.89 - Other specified abnormal findings of blood chemistry Category: Medical Plan: Patient had an elevated B12 level. He denies taking any caxy-xxe-zictqni supplements and is only taking prescribed medications. This could be related to the patient's diet. He denies any abdominal pain or any other symptoms at this time. Will recheck in 3 months. Patient understands agrees with this. Condition is stable. (9) Vitamin D deficiency: Code(s): E55.9 - Vitamin D deficiency, unspecified Category: Medical Plan: Patient currently on vitamin-D supplement 1250 mcg weekly. Condition is chronic and stable continue to monitor Plan Plan Patient was informed and verbally consented to the use of an ambient scribe for clinic note documentation during this visit. 1. Essential Hypertension The patient's hypertension is stable under current medication. The blood pressure is effectively controlled, and no changes are required at this time. 2. Type 2 Diabetes Mellitus Diabetes management involves increasing the Metformin dose to 1000 mg BID. Discussed alternative options such as Ozempic for potentially better weight and glucose control if needed. Proposed use of continuous glucose monitoring for better lifestyle adaptability. 3. Other specified abnormal findings of blood chemistry Continued observation and monitoring of elevated Vitamin B12 levels, with potential follow-up assessments based on dietary intake or metabolic evaluations. Orders: Orders AMB Hemoglobin A1c 08/17/24 E11.9 - Type 2 diabetes mellitus without complications Medications: New flash glucose scanning reader ([employer] Marilyn 14 Day Leonard) As directed 1 ea 6RF E11.9 - Type 2 diabetes mellitus without complications, E66.9 - Obesity, unspecified, E78.00 - Pure hypercholesterolemia, unspecified, G47.33 - Obstructive sleep apnea (adult) (pediatric), I10 - Essential (primary) hypertension blood-glucose meter (FreeStyle Lite Meter kit) As directed 1 ea 6RF E11.9 - Type 2 diabetes mellitus without complications semaglutide (Ozempic) for 4 weeks 0.25 mg (0.368 mL) subcut QWEEK 3 mL 0RF E11.9 - Type 2 diabetes mellitus without complications, E66.9 - Obesity, unspecified, E78.00 - Pure hypercholesterolemia, unspecified, G47.10 - Hypersomnia, unspecified, G47.33 - Obstructive sleep apnea (adult) (pediatric), I10 - Essential (primary) hypertension, R06.83 - Snoring blood-glucose sensor ([employer]Style Marilyn 2 Plus Sensor device) As directed 1 ea 0RF flash glucose scanning reader ([employer]Style Marilyn 2 Leonard) As directed 1 ea 0RF Changed From atorvastatin 10 mg PO BEDTIME 90 tabs 1RF E78.00 - Pure hypercholesterolemia, unspecified To atorvastatin 20 mg PO BEDTIME 90 tabs 1RF E78.00 - Pure hypercholesterolemia, unspecified From metformin Take 1,000mg in the morning and 500mg in pm 1,000 mg PO BID 90 days 180 tabs 1RF To metformin Take 1,000mg in the morning and 1000 mg in pm 1,000 mg PO BID 180 tabs 1RF 90 days From metformin Take 1,000mg in the morning and 500mg in pm 500 mg PO BID 90 tabs 1RF To metformin Take 1,000mg in the morning and 500mg in pm 1,000 mg PO BID 90 days 180 tabs 1RF Patient Instructions: Patient Instructions - Continue current antihypertensive regimen with no changes. - Start taking Metformin 1000 mg twice daily as prescribed. - Consider continuous glucose monitoring to facilitate diabetes management. - Monitor blood glucose levels regularly as discussed. - Maintain efforts in dietary management to ensure optimal blood sugar and weight control. - Follow up in three months for reassessment of diabetes management and blood tests. Scribe Plan - Not visible on output: History of Present Illness The patient is a 43-year-old male presenting for a follow-up regarding his essential hypertension and management of Type 2 Diabetes Mellitus. His hypertension is well-controlled with medication, reflected in stable blood pressure readings. For his diabetes, there is a noted reduction in HbA1c from previous levels, with the current measure at 8.2. Adjustment in Metformin dosage is planned to improve glycemic control further. The patient is hesitant to begin insulin therapy due to personal preferences and concern over self- administration. A continuous glucose monitoring device is being considered to accommodate his lifestyle. Elevated Vitamin B12 is documented, with investigations pending to ascertain causality. Social History - Employment: The patient's work schedule does not accommodate frequent blood glucose monitoring. - Current Nutritional Intake: Challenges noted with dietary restrictions while at work, focusing on salad consumption for weight management. Review of Systems - General: Reports stable condition of diabetes and hypertension. - Gastrointestinal: Denies abdominal pain and diarrhea. - Hematologic: Denies symptoms of Vitamin B12 deficiency. Physical Exam Appearance: Alert. Oriented X3. No acute distress. Head: Normal external exam. Normocephalic. Atraumatic. Eyes: Pupils are equal, round, and reactive to light. Extraocular movements intact. Conjunctiva and sclera normal. Eyelids normal. Ears: External auditory canal normal. Tympanic membranes normal. Throat: Pharynx normal. Uvula midline. Moist mucous membranes. Neck: Normal inspection. Neck supple. Full range of motion. No adenopathy. Thyroid Normal. No meningeal signs. No neck mass noted. Cardiovascular: Normal heart rate and rhythm. Heart sound normal. No murmurs noted. Pulses normal throughout. Respiratory: No respiratory distress. Painless inspiration. Breath sounds normal. No wheezes/rales/rhonchi noted. Chest nontender. No accessory muscle usage noted or decreased air movement noted. Abdomen: Soft and nontender. Bowel sounds normal in all 4 quadrants. No distention noted. No organomegaly noted. No visible injury noted. Back: No costovertebral angle tenderness. Full range of motion noted. Skin: Skin warm and dry. Normal skin color. Normal skin turgor. No rashes/lesions/lacerations noted. Extremities: No lower extremity edema. Extremities exhibit normal range of motion. Extremities nontender. Neuro: Oriented X 3. No motor deficit. No sensory deficit. Reflexes normal. Results - Labs: HbA1c level at 8.2; previous Vitamin B12 level noted at 1832 Plan Patient was informed and verbally consented to the use of an ambient scribe for clinic note documentation during this visit. 1. Essential Hypertension The patient's hypertension is stable under current medication. The blood pressure is effectively controlled, and no changes are required at this time. 2. Type 2 Diabetes Mellitus Diabetes management involves increasing the Metformin dose to 1000 mg BID. Discussed alternative options such as Ozempic for potentially better weight and glucose control if needed. Proposed use of continuous glucose monitoring for better lifestyle adaptability. 3. Other specified abnormal findings of blood chemistry Continued observation and monitoring of elevated Vitamin B12 levels, with potential follow-up assessments based on dietary intake or metabolic evaluations. Discussion Notes During the consultation, I discussed with the patient the course of his essential hypertension and current regimen efficacy. Regarding Type 2 Diabetes Mellitus, I explained the adjustment in Metformin dosage and introduced the idea of using a continuous glucose monitor for improved diabetes management with fewer intrusions on his daily life. We reviewed the potential introduction of a GLP-1 receptor agonist such as Ozempic, emphasizing the potential benefits and addressing his reluctance towards insulin. For elevated Vitamin B12, we talked about potential dietary causes pending further investigation. Follow-up in three months was scheduled to reassess diabetes management and monitor HbA1c levels. Patient Instructions - Continue current antihypertensive regimen with no changes. - Start taking Metformin 1000 mg twice daily as prescribed. - Consider continuous glucose monitoring to facilitate diabetes management. - Monitor blood glucose levels regularly as discussed. - Maintain efforts in dietary management to ensure optimal blood sugar and weight control. - Follow up in three months for reassessment of diabetes management and blood tests.
== END 2024-08-17 12:04 | disposition home or self-care (01) ==
PROVIDERS: PCP Nurse Practitioner Family; Visit Provider Physician Assistant Medical
DX: E11.9 Type 2 diabetes mellitus without complications (principal)

== ENCOUNTER → 2024-08-17 11:19 | Outpatient (BNVA) | payer OTHER, SELFPAY | PROVIDERS: PCP Nurse Practitioner Family; Visit Provider Physician Assistant Medical | DX: E11.9 Type 2 diabetes mellitus without complications (principal); E78.00 Pure hypercholesterolemia, unspecified; I10 Essential (primary) hypertension; E66.9 Obesity, unspecified; G47.33 Obstructive sleep apnea (adult) (pediatric); R06.83 Snoring; G47.10 Hypersomnia, unspecified; R79.89 Other specified abnormal findings of blood chemistry; E55.9 Vitamin D deficiency, unspecified | CPT/HCPCS: 83036; 96127; 99212 ==